=== PATIENT | male | born 1945 | race Caucasian/White ===

== ENCOUNTER 2017-03-07 04:36 | Emergency (ER) | payer OTHER ==
[2017-03-07 04:56] VITALS: BP 157/98; PULSE 80; TEMP 98.5; BMI 34.3
[2017-03-07] MEDS ORDERED: ACETAMINOPHEN 325 MG TABLET (FP) PO ONE (05:15)
[2017-03-07] MEDS ORDERED: OXYCODONE/APAP 5/325MG COMBO TABLET PO ONE (05:15)
[2017-03-07] MEDS ORDERED: IBUPROFEN 400 MG TABLET (FP) PO ONE (05:16)
--- NOTE | 2017-03-07 05:23 | PDOC ---
History of Present Illness - General History Source: Patient Exam Limitations: No Limitations - History of Present Illness Initial Comments: 03/07/17 05:33 Patient is a 71 year old male with a significant past medical history of htn, hld, chronic back pain who presents to the ED with s/p fall today. Patient fell on the street approximately 20 days ago and hit both of his elbows. Patient notes that he fell out of bed today and hit his left elbow and is now experiencing pain and swelling. <Kerrie Diaz - Last Filed: 03/07/17 06:10> <Jame Arreaga - Last Filed: 03/07/17 06:17> - General Chief Complaint: Pain Stated Complaint: LEFT ELBOW PAIN Past History <Kerrie Diaz - Last Filed: 03/07/17 06:10> - Past Medical History HTN: Yes Hypercholesterolemia: Yes Kidney Stones: Yes - Psycho/Social/Smoking Cessation Hx Anxiety: No Suicidal Ideation: No Smoking History: Never smoked Have you smoked in the past 12 months: No Information on smoking cessation initiated: No Hx Alcohol Use: No Drug/Substance Use Hx: No Substance Use Type: None <Jame Arreaga - Last Filed: 03/07/17 06:17> - Past Medical History Allergies/Adverse Reactions: Allergies Allergy/AdvReac Type Severity Reaction Status Date / Time No Known Allergies Allergy Verified 03/07/17 04:51 Home Medications: Ambulatory Orders Tramadol HCl 0 mg PO 03/07/17 Review of Systems - Review of Systems Able to Perform ROS?: Yes Comments:: 03/07/17 05:34 GENERAL/CONSTITUTIONAL: No fever or chills. No weakness. HEAD, EYES, EARS, NOSE AND THROAT: No change in vision. No ear pain or discharge. No sore throat. CARDIOVASCULAR: No chest pain or shortness of breath. RESPIRATORY: No cough, wheezing, or hemoptysis. GASTROINTESTINAL: No nausea, vomiting, diarrhea or constipation. GENITOURINARY: No dysuria, frequency, or change in urination. MUSCULOSKELETAL: +left elbow pain and swelling. No muscle pain. No neck or back pain. SKIN: No rash NEUROLOGIC: No headache, vertigo, loss of consciousness, or change in strength/ sensation. ENDOCRINE: No increased thirst. No abnormal weight change. HEMATOLOGIC/LYMPHATIC: No anemia, easy bleeding, or history of blood clots. ALLERGIC/IMMUNOLOGIC: No hives or skin allergy. <Kerrie Diaz - Last Filed: 03/07/17 06:10> *Physical Exam - Vital Signs Last Vital Signs Temp Pulse Resp BP Pulse Ox 98.5 F 80 20 157/98 98 03/07/17 04:51 03/07/17 04:51 03/07/17 04:51 03/07/17 04:51 03/07/17 04:51 - Physical Exam Comments: 03/07/17 06:10 GENERAL: Awake, alert, and fully oriented, in no acute distress HEAD: No signs of trauma EYES: PERRLA, EOMI, sclera anicteric, conjunctiva clear ENT: Auricles normal inspection, hearing grossly normal, nares patent, oropharynx clear without exudates. Moist mucosa NECK: Normal ROM, supple, no lymphadenopathy, JVD, or masses LUNGS: Breath sounds equal, clear to auscultation bilaterally. No wheezes, and no crackles HEART: Regular rate and rhythm, normal S1 and S2, no murmurs, rubs or gallops ABDOMEN: Soft, nontender, normoactive bowel sounds. No guarding, no rebound. No masses EXTREMITIES: Full ROM, +3 cm diameter hematoma/collection of fluid at the left joint vortex. No erythema, No induration, no joint blot ability. Normal range of motion. No clubbing or cyanosis. No cords or tenderness NEUROLOGICAL: Cranial nerves II through XII grossly intact. Normal speech, normal gait SKIN: Warm, Dry, normal turgor, no rashes or lesions noted. <Kerrie Diaz - Last Filed: 03/07/17 06:10> - Vital Signs Last Vital Signs Temp Pulse Resp BP Pulse Ox 98.5 F 80 20 157/98 98 03/07/17 04:51 03/07/17 04:51 03/07/17 04:51 03/07/17 04:51 03/07/17 04:51 <Jame Arreaga - Last Filed: 03/07/17 06:17> Medical Decision Making - Medical Decision Making 03/07/17 06:15 71yo m with LEFT elbow pain after mechanical fall from bed; this is the second time in the last three weeks he has fallen onto the LEFT elbow; there is no evidence of fracture and there is PE findings suggesting only localized collection of fluid; I have encouraged the patient to ice the area with precaution from thermal injury, active range of motion exercises and compressive wrap to help resolve fluid collection; no indication for needle aspiration; the effusion does not involve the joint given the full range of motion and no pain or limitation with flexion at the elbow; there is no other complaints and no physical exam findings. <Jame Arreaga - Last Filed: 03/07/17 06:17> *DC/Admit/Observation/Transfer - Attestations Scribe Attestion: 03/07/17 05:34 Documentation prepared by MELVIN Herring, acting as biomedical scientist for Jame Arreaga MD. <Kerrie Diaz - Last Filed: 03/07/17 06:10> - Discharge Dispostion Admit: No Decision to Admit order Date/Time: 03/07/17 06:14 - Attestations Physician Attestion: 03/07/17 06:15 I, Dr. Jame Arreaga MD, attest that this document has been prepared under my direction and personally reviewed by me in its entirety. I further attest, that it accurately reflects all work, treatment, procedures and medical decision -making performed by me. <Jame Arreaga - Last Filed: 03/07/17 06:17> Diagnosis at time of Disposition: Elbow pain, left Contusion Qualifiers: Encounter type: initial encounter Contusion area: upper arm Laterality: left Qualified Code(s): S40.022A - Contusion of left upper arm, initial encounter Fall from bed, initial encounter Qualifiers: Encounter type: initial encounter Qualified Code(s): W06.XXXA - Fall from bed, initial encounter - Discharge Dispostion Disposition: HOME Condition at time of disposition: Good - Referrals Referrals: Anay Umana MD [Primary Care Provider] - - Patient Instructions Additional Instructions: Please follow up with your PMD within the next 48 hours; if there is any change otherwise in symptoms, please return immediately to the ED.
[2017-03-07] MEDS ORDERED: ACETAMINOPHEN 325 MG TABLET (FP) ONE (05:31)
[2017-03-07] MEDS ORDERED: OXYCODONE/APAP 5/325MG COMBO TABLET ONE (05:37)
== END 2017-03-07 06:34 | disposition home or self-care (01) ==
LOC: JER 04:36
DX: S50.02XA Contusion of left elbow, initial encounter (principal); W06.XXXA Fall from bed, initial encounter; Y93.89 Activity, other specified; Y92.032 Bedroom in apartment as the place of occurrence of the external cause; I10 Essential (primary) hypertension; E78.00 Pure hypercholesterolemia, unspecified; M54.89 Other dorsalgia; Z87.442 Personal history of urinary calculi
CPT/HCPCS: 73070-TC-LT; 99282-25

== ENCOUNTER 2020-05-30 17:37 | Emergency (ER) | payer OTHER ==
--- NOTE | 2020-05-30 17:46 | PDOC ---
Rapid Medical Evaluation Time Seen by Provider: 05/30/20 17:44 Medical Evaluation: Allergies Allergy/AdvReac Type Severity Reaction Status Date / Time No Known Allergies Allergy Verified 03/11/20 06:25 05/30/20 17:45 CC: lscp worsened with sob since yesterday with pain to neck, no travel, no injury, no recent illness Exam: vss, no reproducible cp, lcta Plan: cardiac w/u Discharge Disposition - Diagnosis Chest pain - Referrals - Patient Instructions - Post Discharge Activity
[2020-05-30 17:52] VITALS: TEMP 97.8; BMI 33.3
[2020-05-30] MEDS ORDERED: ASPIRIN 81 MG CHEWABLE TABLETS ONE (18:25)
[2020-05-30 18:41] LABS: BASO % 0.4 % (0-2.0); EOS % 1.1 % (0-4.5); HEMATOCRIT 41.8 % (35.4-49); HEMOGLOBIN 14.5 GM/dL (11.7-16.9); LYMPH % 32.2 % (8-40); MCH 31.1 pg (25.7-33.7); MCHC 34.5 g/dl (32.0-35.9); MEAN CELL VOLUME 90.1 fl (80-96); MEAN PLT VOLUME 8.2 fl (7.5-11.1); MONO % 9.2 % (3.8-10.2); NEUT % 57.1 % (42.8-82.8); PLATELET COUNT 189 K/MM3 (134-434); RBC 4.64 M/mm3 (4.00-5.60); RDW 13.8 % (11.9-15.9); WHITE BLOOD COUNT 6.8 K/mm3 (4.0-10.0)
[2020-05-30 18:48] LABS: INR 0.99 (0.83-1.09); PROTHROMBIN TIME (PATIENT) 11.7 SEC (9.7-13.0)
--- NOTE | 2020-05-30 19:03 | PDOC ---
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 Patient states he gets severe pain in his chest when he breaths deeply. No radiation to neck or arms. No association with rest, exertion, or position. No leg pain/swelling, hemoptysis or malignancy. No f/c, SOB, n/v, AP, diarrhea. There is constipation. Also complains of neck and shoulder pain for 15 days and states he has been unable to get his diclofenac. PMH/PSH: as in HPI Meds: Clopidogrel Bisulfate [Clopidogrel] 75 mg PO DAILY 03/11/20 Diclofenac Sodium [Voltaren -] 75 mg PO BID 03/11/20 Metoprolol Tartrate 50 mg PO BID 03/11/20 Tamsulosin HCl [Flomax] 0.4 mg PO DAILY 03/11/20 Allergies: none Tob: denies Etoh: denies Rec drugs: denies PCP: [facility] [place] [facility]? ROS GENERAL/CONSTITUTIONAL: No fever or chills. No weakness. HEAD, EYES, EARS, NOSE AND THROAT: No change in vision. No ear pain or discharge. No sore throat. CARDIOVASCULAR: Pleuritic chest pain RESPIRATORY: No cough, wheezing, or hemoptysis. Pleuritic chest pain GASTROINTESTINAL: No nausea, vomiting, diarrhea. + constipation. GENITOURINARY: No dysuria, frequency, or change in urination. MUSCULOSKELETAL: join pain and muscle pain in neck and shoulders SKIN: No rash NEUROLOGIC: No headache, vertigo, loss of consciousness, or change in strength/sensation. ENDOCRINE: No increased thirst. No abnormal weight change HEMATOLOGIC/LYMPHATIC: No anemia, easy bleeding, or history of blood clots. ALLERGIC/IMMUNOLOGIC: No hives or skin allergy. PE GENERAL: Awake, alert, and fully oriented, in no acute distress HEAD: No signs of trauma, normocephalic, atraumatic EYES: PERRLA, EOMI, sclera anicteric, conjunctiva clear ENT: hearing grossly normal, nares patent, oropharynx clear without exudates. Moist mucosa NECK: Normal ROM, supple, no lymphadenopathy, JVD, or masses LUNGS: No distress, speaks full sentences, clear to auscultation bilaterally HEART: Regular rate and rhythm, normal S1 and S2, no murmurs, rubs or gallops, peripheral pulses normal and equal bilaterally. ABDOMEN: Soft, nontender, normoactive bowel sounds. No guarding, no rebound. No masses EXTREMITIES : Normal inspection, Normal range of motion, no edema. No clubbing or cyanosis. Diffusely tender to palpation in neck, shoulders, and arms. No midline tenderness. NEUROLOGICAL: Cranial nerves II through XII grossly intact. Normal speech, no focal sensorimotor deficits. Gait not assessed SKIN: Warm, Dry, normal turgor, no rashes or lesions noted Assessment and Plan 74yo M w/PMH Covid (February), HTN, ?CAD, and lower back msk issues who presents with a CC of left sided pleuritic chest pain x2 days. Story not suspicious for ACS, EKG without ischemic changes, trops neg x1. Covid may have made him hyperoagulable, so will pursue CTA to r/o PE. CXR w/o signs of pneumonia. Labs unremarkable. Neck/shoulder pain likely musculoskeletal - PCP f/u. -EKG: NSR, left axis deviation, no ischemic changes -CXR: no acute process -labs: reassuring -CTA: negative for PE, consistent with resolving COVID pneumonia Pleuritic pain likely secondary to sequellae of COVID pneumonia. Given cards and pulm referral. Patient stable for discharge. Informed of all lab and imaging results. Given follow up instructions and strict return precautions. Patient expressed understanding and agree to plan. 10/09 23:36 05/30/20 23:40 <Ruiz Govea - Last Filed: 05/30/20 23:49> - General Chief Complaint: Shortness of Breath Stated Complaint: SOB Time Seen by Provider: 05/30/20 17:44 Past History <Geni Guadarrama - Last Filed: 05/30/20 22:35> - Medical History Cardiac Disorders: Yes (cad) COPD: No HTN: Yes Hypercholesterolemia: Yes Kidney Stones: Yes - Surgical History Cardiac Surgery: Yes (15 yrs ago - stent placement) - Psycho-Social/Smoking History Smoking History: Never smoked Have you smoked in the past 12 months: No - Substance Abuse Hx (Audit-C & DAST Scrn) How often the patient has a drink containing alcohol: Never Score: In Men: 4 or > Positive; In Women: 3 or > Positive: 0 Screen Result (Pos requires Nsg. Audit-10AR): Negative In the last yr the pt used illegal drug/Rx for NonMed reason: No Score: Yes response is considered Positive: 0 Screen Result (Positive result requires Nsg. DAST-10): Negative <Ruiz Govea - Last Filed: 05/30/20 23:49> - Medical History Allergies/Adverse Reactions: Allergies Allergy/AdvReac Type Severity Reaction Status Date / Time No Known Allergies Allergy Verified 03/11/20 06:25 Home Medications: Ambulatory Orders Clopidogrel Bisulfate [Clopidogrel] 75 mg PO DAILY 03/11/20 Diclofenac Sodium [Voltaren -] 75 mg PO BID 03/11/20 Metoprolol Tartrate 50 mg PO BID 03/11/20 Tamsulosin HCl [Flomax -] 0.4 mg PO DAILY 03/11/20 Docusate Sodium [Colace -] 100 mg PO TID #0 capsule 03/17/20 Gabapentin [Neurontin -] 300 mg PO TID #0 capsule MDD 3 03/17/20 Methocarbamol [Robaxin -] 500 mg PO BID #0 tablet 03/17/20 oxyCODONE HCL [Roxicodone -] 5 mg PO Q6H PRN tablet 03/18/20 *Physical Exam - Vital Signs Last Vital Signs Temp Pulse Resp BP Pulse Ox 97.8 F 53 L 15 121/63 98 05/30/20 17:45 05/30/20 20:12 05/30/20 20:12 05/30/20 20:12 05/30/20 20:12 <Geni Guadarrama - Last Filed: 05/30/20 22:35> - Vital Signs Last Vital Signs Temp Pulse Resp BP Pulse Ox 97.8 F 60 16 141/61 96 05/30/20 17:45 05/30/20 17:45 05/30/20 17:45 05/30/20 17:45 05/30/20 17:45 <Ruiz Govea - Last Filed: 05/30/20 23:49> ED Treatment Course - LABORATORY CBC & Chemistry Diagram: 05/30/20 18:27 05/30/20 18:27 - ADDITIONAL ORDERS Additional order review: Laboratory Results 05/30/20 05/30/20 05/30/20 21:41 21:41 18:27 PT with INR INR PTT (Actin FS) D-Dimer 261 Sodium 136 Potassium 5.1 Chloride 105 Carbon Dioxide 23 Anion Gap 8 BUN 15.7 Creatinine 1.0 Est GFR (CKD-EPI)AfAm 86.76 Est GFR (CKD-EPI)NonAf 74.86 Random Glucose 102 Calcium 9.3 Magnesium 2.3 Total Bilirubin 0.5 AST 34 ALT 42 Alkaline Phosphatase 54 Creatine Kinase 133 Troponin I < 0.02 < 0.02 B-Natriuretic Peptide 51.9 Total Protein 8.2 Albumin 4.1 05/30/20 18:27 PT with INR 11.70 INR 0.99 PTT (Actin FS) 21.0 L D-Dimer Sodium Potassium Chloride Carbon Dioxide Anion Gap BUN Creatinine Est GFR (CKD-EPI)AfAm Est GFR (CKD-EPI)NonAf Random Glucose Calcium Magnesium Total Bilirubin AST ALT Alkaline Phosphatase Creatine Kinase Troponin I B-Natriuretic Peptide Total Protein Albumin 05/30/20 18:27 RBC 4.64 MCV 90.1 MCHC 34.5 RDW 13.8 MPV 8.2 Neutrophils % 57.1 Lymphocytes % 32.2 D Monocytes % 9.2 D Eosinophils % 1.1 D Basophils % 0.4 <Geni Gudaarrama - Last Filed: 05/30/20 22:35> - LABORATORY CBC & Chemistry Diagram: 05/30/20 18:27 05/30/20 18:27 - ADDITIONAL ORDERS Additional order review: Laboratory Results 05/30/20 18:27 PT with INR 11.70 INR 0.99 PTT (Actin FS) 21.0 L 05/30/20 18:27 RBC 4.64 MCV 90.1 MCHC 34.5 RDW 13.8 MPV 8.2 Neutrophils % 57.1 Lymphocytes % 32.2 D Monocytes % 9.2 D Eosinophils % 1.1 D Basophils % 0.4 <Ruiz Govea - Last Filed: 05/30/20 23:49> Discharge - Discharge Information Problems reviewed: Yes - Admission No <Geni Guadarrama - Last Filed: 05/30/20 22:35> - Discharge Information Problems reviewed: Yes <Ruiz Govea - Last Filed: 05/30/20 23:49> - Discharge Information Clinical Impression/Diagnosis: Fibrosis, lung Chest pain Qualifiers: Chest pain type: pleurodynia Qualified Code(s): R07.81 - Pleurodynia Condition: Stable Disposition: HOME - Follow up/Referral Referrals: Gaston Conley MD, MD [Staff Physician] - Nam Vaughn MD [Staff Physician] - - Patient Discharge Instructions Patient Printed Discharge Instructions: DI for Atypical Chest Pain Additional Instructions: Usted fue visto en el servicio de urgencias por dolor pleurtico en el pecho. Hicimos un CTA de kennedy pecho que mostr cambios consistentes con joanna neumona COVID en resolucin. Fue negativo para embolia pulmonar o cualquier proceso subha. Le dimos referencias para tammi a un cardilogo y neumlogo. Regrese al servicio de urgencias si experimenta dolor en el pecho, dificultad para respirar, fiebre o cualquier otro motivo. You were seen in the ED for pleuritic chest pain. We did a CTA of your chest which showed changes consistent with a resolving COVID pneumonia. It was negative for pulmonary embolism or any acute process. We gave you referrals to see a pets and pet supplies salesperson and pipeline maintenance supervisor. Please return to the ED if you experience chest pain, shortness of breath, fever, or any other reason.
[2020-05-30 19:07] LABS: ALBUMIN 4.1 g/dl (3.4-5.0); ALK PHOS 54 U/L (45-117); ANION GAP 8 MMOL/L (8-16); BILIRUBIN,TOTAL 0.5 mg/dL (0.2-1); BLOOD UREA NITROGEN 15.7 mg/dL (7-18); CALCIUM 9.3 mg/dL (8.5-10.1); CHLORIDE 105 mmol/L (98-107); CO2 23 mmol/L (21-32); GLUCOSE,RANDOM 102 mg/dL (74-106); MAGNESIUM 2.3 mg/dL (1.8-2.4); N-TERMINAL BNP 51.9 pg/ml (5-125); POTASSIUM 5.1 mmol/L (3.5-5.1); SGOT/AST 34 U/L (15-37); SGPT/ALT 42 U/L (13-61); SODIUM 136 mmol/L (136-145); TOT PROT 8.2 g/dl (6.4-8.2)
--- NOTE | 2020-05-30 20:08 | PDOC ---
Attending Attestation - Resident Resident Name: Ruiz Govea - ED Attending Attestation I have performed the following: I have examined & evaluated the patient, The case was reviewed & discussed with the resident, I agree w/resident's findings & plan - HPI HPI: 05/30/20 20:08 Pt comes with SOB. He lives alone; suffered COVID in January and he survived. He has been well, but now with residual SOB. 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 Pt has no fevers no chills and no ill contacts. No leg swelling. 05/30/20 21:16 - Physicial Exam PE: 05/30/20 20:13 Normal HEENT obese afebrile no rashes Hear RRR lungs CTA B abd soft NT ND flank no pain with percussion ext:No pitting edema neuro:A+Ox3; moving all extremities. - Medical Decision Making 05/30/20 22:[address] scan and normal cardiac enzymes x 2 05/30/20 22:34 Patient Name: MARCE KURTZ THIS IS A PRELIMINARY REPORT FROM [facility] EXAM: CTA chest with contrast IMAGES:[id number] DATE OF EXAM: 2020-05-30 21:16:47 REASON FOR EXAM: Rule out pulmonary embolism COMPARISON: None Findings: Mild right upper lobe hilar adenopathy and paramediastinal fibrosis causing narrowing of the right upper lobe bronchi and pulmonary arteries. No evidence for pulmonary embolism or aortic dissection. Mild bilateral groundglass opacities and interstitial thickening atelectasis, edema, or less likely infiltrates. Scattered atelectasis and fibrotic changes in the remainder of the lungs. Evidence for prior granulomatous disease. No focal consolidation, pleural effusion, or pneumothorax. Cardiomegaly without significant pericardial effusion. Indeterminate left renal cyst. 05/30/20 22:34 Pt should follow with the biological engineer Heart Score/ECG Review - History History: Slightly suspicious - Electrocardiogram EKG: Normal - Age Age: >/= 65 - Risk Factors Risk Factors Heart Score: Yes Hx Hypertension, Yes Positive family hx of cardiac disease, Yes Hx Obesity Based on the list above the patient has:: >/=3 risk factors or Hx atherosclerotic disease - Troponin Troponin: </= normal limit - Score Heart Score - Total: 4 - ECG Intrepretation Rhythm: Regular Rhythm - Claiborne Claiborne: Normal - P and IN Prominent R with upright T in V1 (true posterior ND): No Delta Wave(s) Present: No WPW: No Discharge - Discharge Information Problems reviewed: Yes Clinical Impression/Diagnosis: Fibrosis, lung Chest pain Qualifiers: Chest pain type: pleurodynia Qualified Code(s): R07.81 - Pleurodynia Condition: Stable Disposition: HOME - Follow up/Referral Referrals: Nam Vaughn MD [Staff Physician] - Gaston Conley MD, MD [Staff Physician] - - Patient Discharge Instructions Patient Printed Discharge Instructions: DI for Atypical Chest Pain Additional Instructions: Usted fue visto en el servicio de urgencias por dolor pleurtico en el pecho. Hicimos un CTA de kennedy pecho que mostr cambios consistentes con joanna neumona COVID en resolucin. Fue negativo para embolia pulmonar o cualquier proceso subha. Le dimos referencias para tammi a un cardilogo y neumlogo. Regrese al servicio de urgencias si experimenta dolor en el pecho, dificultad para respirar, fiebre o cualquier otro motivo. You were seen in the ED for pleuritic chest pain. We did a CTA of your chest which showed changes consistent with a resolving COVID pneumonia. It was negative for pulmonary embolism or any acute process. We gave you referrals to see a bank accountant and biological engineer. Please return to the ED if you experience chest pain, shortness of breath, fever, or any other reason. - Post Discharge Activity
[2020-05-30 20:17] VITALS: BP 121/63; PULSE 53
--- NOTE | 2020-05-31 11:27 | EKG ---
Test Reason : Blood Pressure : / mmHG Vent. Rate : 060 BPM Atrial Rate : 060 BPM P-R Int : 150 ms QRS Dur : 092 ms QT Int : 410 ms P-R-T Axes : 001 -39 057 degrees QTc Int : 410 ms NORMAL SINUS RHYTHM LEFT AXIS DEVIATION ABNORMAL ECG WHEN COMPARED WITH ECG OF 11-MAR-2020 05:39, NO SIGNIFICANT CHANGE WAS FOUND Confirmed by CHARLES NELSON MD ([id number]) on 05/31/2020 11:27:22 AM Referred By: Confirmed By:CHARLES NELSON MD
== END 2020-05-30 23:10 | disposition home or self-care (01) ==
LOC: JER 17:37
DX: R07.81 Pleurodynia (principal); J84.10 Pulmonary fibrosis, unspecified
CPT/HCPCS: 36415; 71045-TC-FY; 71275-TC; 80053; 82550; 83735; 83880; 84484; 85025; 85379; 85610; 85730; 93005; 93010; 99285-25; Q9967

== ENCOUNTER 2020-06-20 12:38 | Observation (INO) | payer OTHER ==
--- NOTE | 2020-06-20 13:07 | PDOC ---
History of Present Illness - General Chief Complaint: Chest Pain Stated Complaint: CHEST PAIN Time Seen by Provider: 06/20/20 13:07 - History of Present Illness Initial Comments: Pt is a 74yo divehi speaking, poor historian, M with PMH HTN, Covid, HLD, DM, CAD who presents with chest pain. Pt states that pain began at 10am when he was walking on the street to roller picker his car. Symptoms have since resolved. Denies any aggravating or relieving factors. CP is non positional, non pleuritic. Pain is on left lateral chest, without radiation, described as sharp, 4/10 in severity. Reports dizziness and nausea, with the feeling of being unable to see, a/w with head movements that has been going on for 1 month. Dizziness is descri bed as feeling like the room is spinning. Denies f/c, SOB, cough, wheezing, abdominal pain. PCP: Yousuf PMH: CAD w/stent (2008), HTN, HLD, DM, memory loss, depression, anxiety, dizziness (2015), sciatica, hx of Covid in February [facility] Home Medication List Medication Instructions Recorded Confirmed Type Clopidogrel Bisulfate [Clopidogrel] 75 mg PO DAILY 03/11/20 03/11/20 History Diclofenac Sodium [Voltaren -] 75 mg PO BID 03/11/20 03/11/20 History Metoprolol Tartrate 50 mg PO BID 03/11/20 03/11/20 History Tamsulosin HCl [Flomax -] 0.4 mg PO DAILY 03/11/20 03/11/20 History Social: denies smoking, drinking, etoh Past History - Medical History Allergies/Adverse Reactions: Allergies Allergy/AdvReac Type Severity Reaction Status Date / Time No Known Allergies Allergy Verified 06/20/20 12:45 Home Medications: Ambulatory Orders Clopidogrel Bisulfate [Clopidogrel] 75 mg PO DAILY 03/11/20 Diclofenac Sodium [Voltaren -] 75 mg PO BID 03/11/20 Metoprolol Tartrate 50 mg PO BID 03/11/20 Tamsulosin HCl [Flomax -] 0.4 mg PO DAILY 03/11/20 Docusate Sodium [Colace -] 100 mg PO TID #0 capsule 03/17/20 Gabapentin [Neurontin -] 300 mg PO TID #0 capsule MDD 3 03/17/20 Methocarbamol [Robaxin -] 500 mg PO BID #0 tablet 03/17/20 oxyCODONE HCL [Roxicodone -] 5 mg PO Q6H PRN tablet 03/18/20 Cardiac Disorders: Yes (cad) COPD: No HTN: Yes Hypercholesterolemia: Yes Kidney Stones: Yes - Surgical History Cardiac Surgery: Yes (15 yrs ago - stent placement) - Psycho-Social/Smoking History Smoking History: Never smoked Have you smoked in the past 12 months: No Information on smoking cessation initiated: No Review of Systems - Review of Systems Able to Perform ROS?: Yes Comments:: CONSTITUTIONAL:denies fever, chills, diaphoresis, generalized weakness, loss of appetite HEENT:denies rhinorrhea, nasal congestion, sore throat, ear pain, eye pain, visual Changes CARDIOVASCULAR:reports chest pain; denies syncope, palpitations, irregular heart rate, lightheadedness, peripheral edema RESPIRATORY:denies cough, shortness of breath, wheezing GASTROINTESTINAL: reports nausea; denies abdominal pain, vomiting, diarrhea, constipation GENITOURINARY:denies dysuria, frequency, hematuria MUSCULOSKELETAL:reports arthalgia (chronic), neck pain (chronic), back pain (chronic) NEUROLOGIC:reports dizziness; denies headache, loss of consciousness, unsteady gait, bladder or bowel incontinence SKIN:denies rash, itching, pallor *Physical Exam - Vital Signs Last Vital Signs Temp Pulse Resp BP Pulse Ox 98.5 F 63 16 113/48 L 97 06/20/20 12:42 06/20/20 12:42 06/20/20 12:42 06/20/20 12:42 06/20/20 12:42 - Physical Exam General: awake, alert, fully oriented, in no acute distress, well developed, well nourished Head: normocephalic, atraumatic Eyes: PERRL, EOMI, anicteric sclera, conjunctiva clear ENT: hearing grossly normal, oropharynx clear without exudates. Moist mucous membranes Neck: supple, normal ROM Lung: equal breath sounds b/l, CTA b/l, no crackles, wheezes; no distress, speaks full sentences Heart: RRR, normal S1, S2, no murmurs, rubs, gallops, no TTP of chest wall Abdomen: soft, non tender, normoactive bowel sounds, no guarding, rebound, masses Extremities: no edema, no erythema or tenderness, DP/PT pulses 2+ and symmetric, no clubbing, cyanosis Neuro: CN2-12 grossly intact, moves all extremities, speaks slowly, uses a walker, sensation intact, no nystagmus Skin: warm, dry, no rashes noted Heart Score/ECG Review - History History: Slightly suspicious - Electrocardiogram EKG: Normal - Age Age: >/= 65 - Risk Factors Risk Factors Heart Score: Yes Hx Hypercholesterolemia, Yes Hx Hypertension, Yes Hx Diabetes, Yes Hx Obesity Based on the list above the patient has:: >/=3 risk factors or Hx atherosclerotic disease - Troponin Troponin: </= normal limit - Score Heart Score - Total: 4 ED Treatment Course - LABORATORY CBC & Chemistry Diagram: 06/20/20 13:05 06/20/20 13:05 - ADDITIONAL ORDERS Additional order review: Laboratory Results 06/20/20 13:02 POC Glucometer 141 06/20/20 13:02 POC Glucometer 141 Medical Decision Making - Medical Decision Making Pt is a 74yo M with PMH who presents with chest pain Vital Signs Period Temp Pulse Resp BP Sys/Venegas Pulse Ox Last 24 Hr 98.5 F 63 16 113/48 97 DDx: ACS, PE, vertigo, TIA Plan: labs, EKG EKG: HR 60bpm, normal sinus rhythm, AZ 148ms, QRS 92ms, QTc 402ms, unchanged from previous HEART score: 4 Labs: no leukocytosis, no anemia, electrolytes WNL, NILA Laboratory Tests 06/20/20 06/20/20 06/20/20 13:02 13:05 13:05 WBC 7.7 RBC 4.42 Hgb 13.9 Hct 39.7 MCV 89.7 MCH 31.4 MCHC 35.0 RDW 13.3 Plt Count 185 MPV 8.0 Absolute Neuts (auto) 5.9 Neutrophils % 76.4 D Lymphocytes % 14.2 D Monocytes % 8.6 Eosinophils % 0.6 Basophils % 0.2 Nucleated RBC % 0 PT with INR 12.40 INR 1.05 PTT (Actin FS) 28.0 Sodium Potassium Chloride Carbon Dioxide Anion Gap BUN Creatinine Est GFR (CKD-EPI)AfAm Est GFR (CKD-EPI)NonAf POC Glucometer 141 Random Glucose Calcium Total Bilirubin AST ALT Alkaline Phosphatase Creatine Kinase Troponin I Total Protein Albumin 08/01/20 13:05 WBC RBC Hgb Hct MCV MCH MCHC RDW Plt Count MPV Absolute Neuts (auto) Neutrophils % Lymphocytes % Monocytes % Eosinophils % Basophils % Nucleated RBC % PT with INR INR PTT (Actin FS) Sodium 138 Potassium 4.9 Chloride 107 Carbon Dioxide 28 Anion Gap 3 L BUN 21.6 H Creatinine 1.5 H Est GFR (CKD-EPI)AfAm 53.14 Est GFR (CKD-EPI)NonAf 45.85 POC Glucometer Random Glucose 128 H Calcium 9.5 Total Bilirubin 0.8 AST 20 ALT 26 Alkaline Phosphatase 56 Creatine Kinase 106 Troponin I < 0.02 Total Protein 7.6 Albumin 3.8 Given cardiac risk factors and age (heart score 4) and NILA, patient to be admitting. Discussed with patient who agreed with plan Disposition Admit to tele obs Discharge - Discharge Information Problems reviewed: Yes Clinical Impression/Diagnosis: NILA (acute kidney injury) Chest pain Qualifiers: Chest pain type: unspecified Qualified Code(s): R07.9 - Chest pain, unspecified Condition: Stable - Admission Yes - Follow up/Referral - Patient Discharge Instructions - Post Discharge Activity
[2020-06-20 14:04] LABS: BASO % 0.2 % (0-2.0); EOS % 0.6 % (0-4.5); HEMATOCRIT 39.7 % (35.4-49); HEMOGLOBIN 13.9 GM/dL (11.7-16.9); LYMPH % 14.2 % (8-40); MCH 31.4 pg (25.7-33.7); MEAN CELL VOLUME 89.7 fl (80-96); MONO % 8.6 % (3.8-10.2); NEUT % 76.4 % (42.8-82.8); PLATELET COUNT 185 K/MM3 (134-434); RBC 4.42 M/mm3 (4.00-5.60); RDW 13.3 % (11.9-15.9); WHITE BLOOD COUNT 7.7 K/mm3 (4.0-10.0)
[2020-06-20 14:10] LABS: INR 1.05 (0.83-1.09); PROTHROMBIN TIME (PATIENT) 12.4 SEC (9.7-13.0)
[2020-06-20] MEDS ORDERED: ASPIRIN 81 MG CHEWABLE TABLETS PO ONE (14:23)
[2020-06-20] MEDS ORDERED: ASPIRIN 81 MG CHEWABLE TABLETS ONE (14:33)
[2020-06-20 14:34] LABS: ALBUMIN 3.8 g/dl (3.4-5.0); ALK PHOS 56 U/L (45-117); ANION GAP 3 MMOL/L (8-16); BLOOD UREA NITROGEN 21.6 mg/dL (7-18); CALCIUM 9.5 mg/dL (8.5-10.1); CHLORIDE 107 mmol/L (98-107); CO2 28 mmol/L (21-32); CREATININE 1.5 mg/dL (0.55-1.3); GLUCOSE,RANDOM 128 mg/dL (74-106); POTASSIUM 4.9 mmol/L (3.5-5.1); SGOT/AST 20 U/L (15-37); SGPT/ALT 26 U/L (13-61); SODIUM 138 mmol/L (136-145); TOT PROT 7.6 g/dl (6.4-8.2)
[2020-06-20 14:38] LABS: BILIRUBIN,TOTAL 0.8 mg/dL (0.2-1)
[2020-06-20] MEDS ORDERED: SODIUM CHLORIDE 1,000 ML IV STA (14:45)
--- NOTE | 2020-06-20 14:47 | PDOC ---
Documentation entered by Nate Garcia SCRIBE, acting as scribe for Kg Calderón MD. Kg Calderón MD: This documentation has been prepared by the Radha goodson Aaron, SCRIBE, under my direction and personally reviewed by me in its entirety. I confirm that the documentation accurately reflects all work, treatment, procedures, and medical decision making performed by me. Attending Attestation - Resident Resident Name: KhanDaisha - ED Attending Attestation I have performed the following: I have examined & evaluated the patient, The case was reviewed & discussed with the resident, I agree w/resident's findings & plan, Exceptions are as noted - HPI HPI: 06/20/20 14:32 The patient is a 74 year old male with a significant PMH of HTN and DM who presents to the emergency department for chest pain. Patient describes the chest pain as a sudden onset of 4.5/10 while walking to his car. Pt also endorses lightheadedness during this episode. Denies SOB. Denies leg swelling. The patient denies SOB, nausea, fever, chills, or headache. Patient denies any other symptoms. Allergies: NKDA PCP: Yes but does not remember name - Physicial Exam PE: 06/20/20 14:47 See resident exam - Medical Decision Making 06/20/20 14:47 74 M with CP and lightheadedness, now resolved. EKG with no acute ischemic changes. - Labs, trop - CXR - Admit tele Discharge - Discharge Information Problems reviewed: Yes Clinical Impression/Diagnosis: NILA (acute kidney injury) Chest pain Qualifiers: Chest pain type: unspecified Qualified Code(s): R07.9 - Chest pain, unspecified Condition: Stable Disposition: HOME - Follow up/Referral - Patient Discharge Instructions - Post Discharge Activity
[2020-06-20] MEDS ORDERED: CEFTRIAXONE 1 GM in DEXTROSE 5%-WATER - 100 ML IVPB ONE (14:59)
[2020-06-20] MEDS ORDERED: AZITHROMYCIN IVPB 500 MG in DEXTROSE 5%-WATER - 250 ML IVPB ONE (14:59)
--- NOTE | 2020-06-20 16:09 | HP ---
CHIEF COMPLAINT: Chest Pain PCP: Dr. To HISTORY OF PRESENT ILLNESS: 74yo Nauruan-speaking M with h/o DM, HTN, HLD, CAD, and chronic lower back pain who originally came in due to atypical L chest pain. 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 Patient reports developing L chest pain without radiation, diaphoresis or SOB. Patient was previously here twice for COVID pneumonitis and chest pain related to his previous COVID hospitalization. Patient reports this pain felt slightly more severe compared to before. He experiences pain with deep breath, but there is no change with position for his pain. In addition he is having slight neck pain, however it does not coincide with his chest pain. Patient states he's been taking his Diclofenac regularly due to his chronic pain as well. He denies any visual disturbances and dizziness. Patient endorses some slight abdominal tenderness as well, however he reports he is due for a bowel movement per his regular schedule. Denies any fever/chills, SOB, diaphoresis, jaw claudication, n/v/d/c, dizziness/lightheadedness, dysuria, polyuria. PAST MEDICAL HISTORY: As above PAST SURGICAL HISTORY: None Social History: Smoking: Quit 15-16 years prior; forgot how much he used to smoke Alcohol: Denies Drugs: Denies Family History: No CVA, no CAD within immediate family members Allergies No Known Allergies Allergy (Verified 06/20/20 12:45) HOME MEDICATIONS: Home Medications Medication Instructions Recorded Clopidogrel Bisulfate [Clopidogrel] 75 mg PO DAILY 03/11/20 Diclofenac Sodium [Voltaren -] 75 mg PO BID 03/11/20 Metoprolol Tartrate 50 mg PO BID 03/11/20 Tamsulosin HCl [Flomax -] 0.4 mg PO DAILY 03/11/20 Docusate Sodium [Colace -] 100 mg PO TID #0 capsule 03/17/20 Gabapentin [Neurontin -] 300 mg PO TID #0 capsule MDD 3 03/17/20 Methocarbamol [Robaxin -] 500 mg PO BID #0 tablet 03/17/20 oxyCODONE HCL [Roxicodone -] 5 mg PO Q6H PRN tablet 03/18/20 REVIEW OF SYSTEMS As per HPI PHYSICAL EXAMINATION Vital Signs - 24 hr 06/20/20 06/20/20 12:42 15:35 Temperature 98.5 F Pulse Rate 63 Respiratory 16 16 Rate Blood Pressure 113/48 L O2 Sat by Pulse 97 Oximetry (%) GENERAL: Awake, alert, and fully oriented, in no acute distress. HEENT: NC/AT, CARRILLO, MMM, EOMi without nystagmus NECK: No C-spine tenderness, no JVD, no masses felt. ROM intact LUNGS: CTA bilaterally. No wheezes, and no crackles. No accessory muscle use. HEART: RRR, normal S1 and S2 without murmur ABDOMEN: Soft, obese, nontender, nondistended, normoactive BS, no guarding or rebound. EXTREMITIES: 2+ pulses, warm, well-perfused. No calf tenderness. No peripheral edema. No CVA tenderness PSYCHIATRIC: Cooperative. Good eye contact. Appropriate mood and affect. SKIN: Warm, dry, no rashes or lesions noted Laboratory Results - last 24 hr 06/20/20 06/20/20 06/20/20 13:02 13:05 13:05 WBC 7.7 RBC 4.42 Hgb 13.9 Hct 39.7 MCV 89.7 MCH 31.4 MCHC 35.0 RDW 13.3 Plt Count 185 MPV 8.0 Absolute Neuts (auto) 5.9 Neutrophils % 76.4 D Lymphocytes % 14.2 D Monocytes % 8.6 Eosinophils % 0.6 Basophils % 0.2 Nucleated RBC % 0 PT with INR 12.40 INR 1.05 PTT (Actin FS) 28.0 Sodium Potassium Chloride Carbon Dioxide Anion Gap BUN Creatinine Est GFR (CKD-EPI)AfAm Est GFR (CKD-EPI)NonAf POC Glucometer 141 Random Glucose Calcium Total Bilirubin AST ALT Alkaline Phosphatase Creatine Kinase Troponin I Total Protein Albumin 06/20/20 13:05 WBC RBC Hgb Hct MCV MCH MCHC RDW Plt Count MPV Absolute Neuts (auto) Neutrophils % Lymphocytes % Monocytes % Eosinophils % Basophils % Nucleated RBC % PT with INR INR PTT (Actin FS) Sodium 138 Potassium 4.9 Chloride 107 Carbon Dioxide 28 Anion Gap 3 L BUN 21.6 H Creatinine 1.5 H Est GFR (CKD-EPI)AfAm 53.14 Est GFR (CKD-EPI)NonAf 45.85 POC Glucometer Random Glucose 128 H Calcium 9.5 Total Bilirubin 0.8 AST 20 ALT 26 Alkaline Phosphatase 56 Creatine Kinase 106 Troponin I < 0.02 Total Protein 7.6 Albumin 3.8 ASSESSMENT/PLAN: Atypical Chest Pain Acute kidney Injury History of HTN History of HLD CAD history Chronic Lower Back Pain --Will place in telemetry observation for atypical chest pain and NILA --Chest pain seems atypical and may be similar to previous COVID pneumonitis and chronic inflammatory sequela --Monitor on telemetry --Trend troponin for r/o evolving ACS --Will defer echocardiogram and further workup as symptoms develop --NILA possibly pre-renal vs. increased NSAID use --Renal U/S to r/o hydronephrosis --Labs ordered for FeNa calculation --Hold all nephrotoxic medications including NSAIDs --Gentle Hydration with IVF Continue home medications with exceptions as above Dispo: Tele Obs Jame Valdez, DO - IM Visit type - Medication Review Med list reviewed for High Risk Meds patients 65 and older: Yes - Emergency Visit Emergency Visit: Yes ED Registration Date: 06/20/20 Care time: The patient presented to the Emergency Department on the above date and was hospitalized for further evaluation of their emergent condition. - New Patient This patient is new to me today: Yes Date on this admission: 06/20/20 - Critical Care Critical Care patient: No
[2020-06-20] MEDS ORDERED: AZITHROMYCIN IVPB 500 MG/250 ML BAG IVPB ONE (16:10)
[2020-06-20] MEDS ORDERED: CEFTRIAXONE 1 GM/50 ML BAG ONE (16:10)
[2020-06-20] MEDS ORDERED: SODIUM CHLORIDE 1,000 ML IV SCH (16:45)
[2020-06-20] MEDS: GABAPENTIN 300 MG CAPSULE PO SCH (23:26)
[2020-06-20] MEDS: METOPROLOL TARTRATE 50 MG TABLET (FP) PO SCH (23:26)
[2020-06-20] MEDS: METHOCARBAMOL 500 MG TABLET PO SCH (23:27)
[2020-06-21 04:18] VITALS: BMI 33.7
[2020-06-21] MEDS: GABAPENTIN 300 MG CAPSULE PO SCH ×3 (05:11→22:25)
[2020-06-21 07:56] LABS: HEMATOCRIT 36.5 % (35.4-49); HEMOGLOBIN 12.7 GM/dL (11.7-16.9); MCH 31.1 pg (25.7-33.7); MCHC 34.6 g/dl (32.0-35.9); MEAN CELL VOLUME 89.9 fl (80-96); MEAN PLT VOLUME 7.8 fl (7.5-11.1); PLATELET COUNT 177 K/MM3 (134-434); RBC 4.06 M/mm3 (4.00-5.60); RDW 13.5 % (11.9-15.9)
[2020-06-21 08:02] LABS: BLOOD UREA NITROGEN 15.6 mg/dL (7-18); CALCIUM 8.6 mg/dL (8.5-10.1); POTASSIUM 4.4 mmol/L (3.5-5.1)
--- NOTE | 2020-06-21 08:33 | PN ---
Progress Note, Physician Chief Complaint: Seen and examined in bed. States no further chest pain present bur pain to neck and upper lumbar area persists. C/o constipation-no BM x 3 days. COVID positive 02/03, negative 03/11 and pending pcr. History of Present Illness: 74yo Romansh-speaking M with h/o DM, HTN, HLD, CAD, and chronic lower back pain who originally came in due to atypical L chest pain. 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 Patient reports developing L chest pain without radiation, diaphoresis or SOB. Patient was previously here twice for COVID pneumonitis and chest pain related to his previous COVID hospitalization. Patient reports this pain felt slightly more severe compared to before. He experiences pain with deep breath, but there is no change with position for his pain. In addition he is having slight neck pain, however it does not coincide with his chest pain. Patient states he's been taking his Diclofenac regularly due to his chronic pain as well. He denies any visual disturbances and dizziness. Patient endorses some slight abdominal tenderness as well, however he reports he is due for a bowel movement per his regular schedule. - Current Medication List Current Medications: Active Medications Clopidogrel Bisulfate (Plavix -) 75 mg PO DAILY [facility] Gabapentin (Neurontin -) 300 mg PO TID [facility] Last Admin: 06/21/20 05:11 Dose: 300 mg Documented by: Methocarbamol (Robaxin -) 500 mg PO BID [facility] Last Admin: 06/20/20 23:27 Dose: 500 mg Documented by: Metoprolol Tartrate (Lopressor -) 50 mg PO BID [facility] Last Admin: 06/20/20 23:26 Dose: 50 mg Documented by: - Objective Vital Signs: Vital Signs Temperature 97.8 F 06/21/20 06:00 Pulse Rate 64 06/21/20 06:00 Respiratory Rate 18 06/21/20 06:00 Blood Pressure 133/76 06/20/20 22:00 O2 Sat by Pulse Oximetry (%) 96 06/21/20 06:00 Constitutional: Yes: Well Nourished, No Distress, Calm Eyes: Yes: WNL, Conjunctiva Clear HENT: Yes: WNL, Atraumatic, Normocephalic Neck: Yes: Supple, Trachea Midline, Tenderness (cervical pain) Cardiovascular: Yes: WNL, Regular Rate and Rhythm Respiratory: Yes: WNL, Regular, CTA Bilaterally Gastrointestinal: Yes: WNL, Normal Bowel Sounds, Soft, Abdomen, Obese ...Rectal Exam: Yes: Deferred Genitourinary: Yes: WNL Breast(s): Yes: WNL Musculoskeletal: Yes: Back Pain Extremities: Yes: WNL Edema: No Peripheral Pulses WNL: Yes Peripheral Pulses: Left Radial: 2+, Right Radial: 2+, Left Doralis Pedis: 2+, Right Dorsalis Pedis: 2+, Left Femoral: 2+, Right Femoral: 2+ Integumentary: Yes: WNL Neurological: Yes: WNL, Alert, Oriented ...Motor Strength: WNL Psychiatric: Yes: WNL Labs: CBC, BMP 06/21/20 06:47 06/21/20 06:47 INR, PTT INR 1.05 (0.83-1.09) 06/20/20 13:05 - ....Imaging Chest X-ray: Report Reviewed, Image Reviewed (bibasilar atelectasis) Ultrasound: Report Reviewed (Renal no hydro) Problem List - Problems (1) Diabetes Assessment/Plan: BGM AC/HS with novolog sliding scale diabetic diet Code(s): E11.9 - TYPE 2 DIABETES MELLITUS WITHOUT COMPLICATIONS (2) HLD (hyperlipidemia) Assessment/Plan: diet controlled on no meds Code(s): E78.5 - HYPERLIPIDEMIA, UNSPECIFIED (3) CAD (coronary artery disease) Assessment/Plan: c/w asa, plavix cardiology consultation pending Code(s): I25.10 - ATHSCL HEART DISEASE OF [place] CORONARY ARTERY W/O ANG PCTRS (4) Suspected COVID-19 virus infection Assessment/Plan: COVID positive 02/03, negative 03/11 and pending pcr. low suspicion of re-infection On RA strict airborne/droplet precautions until resulted Code(s): Z20.828 - CONTACT W AND EXPOSURE TO OTH VIRAL COMMUNICABLE DISEASES (5) Prophylactic measure Assessment/Plan: FEN Fluids: adequate PO intake Electrolytes: monitor & replete as needed Nutrition: diabetic low sodium diet DVT moderate risk sq heparin Dispo Maintain as inpatient full code discharge planning Code(s): Z29.9 - ENCOUNTER FOR PROPHYLACTIC MEASURES, UNSPECIFIED (6) NILA (acute kidney injury) Assessment/Plan: Cr 1.0 down from 1.45 most likely due to dehydration, use of nsaids avoid nephrotoxic agents c/t trend consult renal if does not return to baseline Code(s): N17.9 - ACUTE KIDNEY FAILURE, UNSPECIFIED (7) Chest pain Assessment/Plan: resolved trop negative TTE pending cardiology consultation pending Code(s): R07.9 - CHEST PAIN, UNSPECIFIED Qualifiers: Chest pain type: unspecified Qualified Code(s): R07.9 - Chest pain, unspecified (8) Hypertension Assessment/Plan: normotensive c/w metroprolol Code(s): I10 - ESSENTIAL (PRIMARY) HYPERTENSION (9) Low back pain Assessment/Plan: c/w neurontin lidoderm patch for pain PT Code(s): M54.5 - LOW BACK PAIN (10) Constipation Assessment/Plan: miralax bid dulcolax prn increase PO intake Code(s): K59.00 - CONSTIPATION, UNSPECIFIED Visit type - Emergency Visit Emergency Visit: Yes ED Registration Date: 06/20/20 Care time: The patient presented to the Emergency Department on the above date and was hospitalized for further evaluation of their emergent condition. - New Patient This patient is new to me today: Yes Date on this admission: 06/21/20 - Critical Care Critical Care patient: No - Discharge Referral Referred to [facility] No - Medication Review Med list reviewed for High Risk Meds patients 65 and older: Yes
[2020-06-21] MEDS: TAMSULOSIN HCL 0.4 MG CAP PO SCH (08:45)
[2020-06-21] MEDS ORDERED: BISACODYL 5 MG TABLET.DR (FP) PO ONE (09:15)
--- NOTE | 2020-06-21 09:27 | CON.CARD ---
Consult Consult Specialty:: Cardiology - History of Present Illness History of Present Illness: 74yo Icelandic-speaking M with h/o DM, HTN, HLD, CAD, and chronic lower back pain who originally came in due to atypical L chest pain. 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 Patient reports developing L chest pain without radiation, diaphoresis or SOB. Patient was previously here twice for COVID pneumonitis and chest pain related to his previous COVID hospitalization. Patient reports this pain felt slightly more severe compared to before. He experiences pain with deep breath, but there is no change with position for his pain. In addition he is having slight neck pain, however it does not coincide with his chest pain. Patient states he's been taking his Diclofenac regularly due to his chronic pain as well. He denies any visual disturbances and dizziness. Patient endorses some slight abdominal tenderness as well, however he reports he is due for a bowel movement per his regular schedule. - History Source History Provided By: Patient, Medical Record - Past Medical History Cardio/Vascular: Yes: CAD (stent 15 years ago - does not know details.) - Alcohol/Substance Use Hx Alcohol Use: No - Smoking History Smoking history: Never smoked Have you smoked in the past 12 months: No Home Medications - Allergies Allergies/Adverse Reactions: Allergies Allergy/AdvReac Type Severity Reaction Status Date / Time No Known Allergies Allergy Verified 06/20/20 12:45 - Home Medications Home Medications: Ambulatory Orders Clopidogrel Bisulfate [Clopidogrel] 75 mg PO DAILY 03/11/20 Diclofenac Sodium [Voltaren -] 75 mg PO BID 03/11/20 Metoprolol Tartrate 50 mg PO BID 03/11/20 Tamsulosin HCl [Flomax -] 0.4 mg PO DAILY 03/11/20 Docusate Sodium [Colace -] 100 mg PO TID #0 capsule 03/17/20 Gabapentin [Neurontin -] 300 mg PO TID #0 capsule MDD 3 03/17/20 Methocarbamol [Robaxin -] 500 mg PO BID #0 tablet 03/17/20 oxyCODONE HCL [Roxicodone -] 5 mg PO Q6H PRN tablet 03/18/20 Review of Systems - Review of Systems Constitutional: reports: No Symptoms Eyes: reports: No Symptoms HENT: reports: No Symptoms Neck: reports: No Symptoms Cardiovascular: reports: Chest Pain Gastrointestinal: reports: No Symptoms Genitourinary: reports: No Symptoms Breasts: reports: No Symptoms Reported Musculoskeletal: reports: No Symptoms Integumentary: reports: No Symptoms Neurological: reports: No Symptoms Endocrine: reports: No Symptoms Hematology/Lymphatic: reports: No Symptoms Psychiatric: reports: No Symptoms Vital Signs: Vital Signs Temperature 97.8 F 06/21/20 06:00 Pulse Rate 64 06/21/20 06:00 Respiratory Rate 18 06/21/20 06:00 Blood Pressure 133/76 06/20/20 22:00 O2 Sat by Pulse Oximetry (%) 96 06/21/20 06:00 Constitutional: Yes: Well Nourished, No Distress, Calm Eyes: Yes: WNL, Conjunctiva Clear, EOM Intact HENT: Yes: WNL, Atraumatic, Normocephalic Neck: Yes: WNL, Supple, Trachea Midline Respiratory: Yes: WNL, Regular, CTA Bilaterally Gastrointestinal: Yes: WNL, Normal Bowel Sounds Renal/: Yes: WNL Cardiovascular: Yes: WNL, Regular Rate and Rhythm Musculoskeletal: Yes: WNL Extremities: Yes: WNL Integumentary: Yes: WNL Neurological: Yes: WNL, Alert, Oriented ...Motor Strength: WNL Psychiatric: Yes: WNL, Alert, Oriented - Other Data Labs, Other Data: CBC, BMP 06/21/20 06:47 06/21/20 06:47 INR, PTT INR 1.05 (0.83-1.09) 06/20/20 13:05 Troponin, BNP 06/20/20 06/20/20 13:05 23:19 Troponin I < 0.02 < 0.02 Troponin, BNP 06/20/20 06/20/20 13:05 23:19 Troponin I < 0.02 < 0.02 Imaging - Results Chest X-ray: Image Reviewed (bibasilar atelectasis) EKG: Image Reviewed (sr LDEA no st t wave changes) Problem List - Problems (1) NILA (acute kidney injury) Code(s): N17.9 - ACUTE KIDNEY FAILURE, UNSPECIFIED (2) CAD (coronary artery disease) Code(s): I25.10 - ATHSCL HEART DISEASE OF [place] CORONARY ARTERY W/O ANG PCTRS (3) Chest pain Code(s): R07.9 - CHEST PAIN, UNSPECIFIED Qualifiers: Chest pain type: unspecified Qualified Code(s): R07.9 - Chest pain, unspecified (4) Diabetes Code(s): E11.9 - TYPE 2 DIABETES MELLITUS WITHOUT COMPLICATIONS (5) HLD (hyperlipidemia) Code(s): E78.5 - HYPERLIPIDEMIA, UNSPECIFIED (6) Prophylactic measure Code(s): Z29.9 - ENCOUNTER FOR PROPHYLACTIC MEASURES, UNSPECIFIED (7) Suspected COVID-19 virus infection Code(s): Z20.828 - CONTACT W AND EXPOSURE TO [facility] VIRAL COMMUNICABLE DISEASES (8) 2019 novel coronavirus detected Code(s): U07.1 - COVID POSITIVE (9) BPH (benign prostatic hyperplasia) Code(s): N40.0 - BENIGN PROSTATIC HYPERPLASIA WITHOUT LOWER URINRY TRACT SYMP (10) Bitten by mouse Code(s): W53.01XA - BITTEN BY MOUSE, INITIAL ENCOUNTER (11) Cannot walk Code(s): R26.2 - DIFFICULTY IN WALKING, NOT ELSEWHERE CLASSIFIED (12) Contusion Code(s): T14.8 - OTHER INJURY OF UNSPECIFIED BODY REGION * DO NOT USE * Qualifiers: Encounter type: initial encounter Contusion area: upper arm Laterality: left Qualified Code(s): S40.022A - Contusion of left upper arm, initial encounter (13) Elbow pain, left Code(s): M25.522 - PAIN IN LEFT ELBOW (14) Fall from bed, initial encounter Code(s): W06.XXXA - FALL FROM BED, INITIAL ENCOUNTER Qualifiers: Encounter type: initial encounter Qualified Code(s): W06.XXXA - Fall from bed, initial encounter (15) Fibrosis, lung Code(s): J84.10 - PULMONARY FIBROSIS, UNSPECIFIED (16) Herniation of lumbar intervertebral disc with radiculopathy Code(s): M51.16 - INTERVERTEBRAL DISC DISORDERS W RADICULOPATHY, LUMBAR REGION (17) Hip pain Code(s): M25.559 - PAIN IN UNSPECIFIED HIP Qualifiers: Laterality: right Qualified Code(s): M25.551 - Pain in right hip (18) Hypertension Code(s): I10 - ESSENTIAL (PRIMARY) HYPERTENSION (19) Low back pain Code(s): M54.5 - LOW BACK PAIN (20) Myelopathy Code(s): G95.9 - DISEASE OF SPINAL CORD, UNSPECIFIED (21) Right leg pain Code(s): M79.604 - PAIN IN RIGHT LEG Assessment/Plan Atypical Chest Pain Remote h/o PCI stent 15 years ago on Plavix but bnot on ASA Acute kidney Injury History of HTN History of HLD CAD history Chronic Lower Back Pain Plan; elemetry serial EKG CE ECHO MIBI stress test Obtain details of prior w/u
[2020-06-21] MEDS ORDERED: PT OWN MED DRAWER 7, Y5N ONE ×2 (10:08→22:02)
[2020-06-21] MEDS: METOPROLOL TARTRATE 50 MG TABLET (FP) PO SCH ×2 (10:14→22:25)
[2020-06-21] MEDS: POLYETHYLENE GLYCOL 3350 119 GM BTL PO SCH ×2 (10:15→22:25)
[2020-06-21] MEDS: CLOPIDOGREL BISULFATE 75 MG TABLET (FP) PO SCH (10:15)
[2020-06-21] MEDS: METHOCARBAMOL 500 MG TABLET PO SCH ×2 (10:16→22:26)
[2020-06-21] MEDS: DOCUSATE SODIUM 100 MG CAPSULE (FP) PO SCH ×2 (13:52→22:25)
[2020-06-21] MEDS ORDERED: INSULIN SLIDING SCALE (NOVOLOG) 1 VIAL SQ SCH (16:30)
[2020-06-21] MEDS: LIDOCAINE 5% TOPICAL PATCH TP SCH (16:30)
[2020-06-21] MEDS ORDERED: LIDOCAINE PATCH REMOVAL MC SCH ×2 (22:00)
[2020-06-22 06:41] LABS: BASO % 0.2 % (0-2.0); EOS % 1.7 % (0-4.5); HEMATOCRIT 37.9 % (35.4-49); LYMPH % 44.1 % (8-40); MCH 30.8 pg (25.7-33.7); MCHC 34.2 g/dl (32.0-35.9); MEAN CELL VOLUME 89.9 fl (80-96); MEAN PLT VOLUME 7.7 fl (7.5-11.1); MONO % 12.3 % (3.8-10.2); NEUT % 41.7 % (42.8-82.8); PLATELET COUNT 180 K/MM3 (134-434); RBC 4.22 M/mm3 (4.00-5.60); RDW 13.1 % (11.9-15.9); WHITE BLOOD COUNT 5.6 K/mm3 (4.0-10.0)
[2020-06-22] MEDS: DOCUSATE SODIUM 100 MG CAPSULE (FP) PO SCH ×2 (06:45→13:00)
[2020-06-22] MEDS: GABAPENTIN 300 MG CAPSULE PO SCH ×2 (06:45→13:00)
[2020-06-22 07:06] LABS: ALBUMIN 3.3 g/dl (3.4-5.0); BILIRUBIN,TOTAL 0.4 mg/dL (0.2-1); BLOOD UREA NITROGEN 15.7 mg/dL (7-18); MAGNESIUM 2.3 mg/dL (1.8-2.4); N-TERMINAL BNP 64.2 pg/ml (5-125); POTASSIUM 4.2 mmol/L (3.5-5.1); TOT PROT 6.9 g/dl (6.4-8.2)
--- NOTE | 2020-06-22 07:58 | PN ---
Progress Note, Physician History of Present Illness: 74yo Romansh-speaking M with h/o DM, HTN, HLD, CAD, and chronic lower back pain who originally came in due to atypical L chest pain. 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 Patient reports developing L chest pain without radiation, diaphoresis or SOB. Patient was previously here twice for COVID pneumonitis and chest pain related to his previous COVID hospitalization. Patient reports this pain felt slightly more severe compared to before. He experiences pain with deep breath, but there is no change with position for his pain. In addition he is having slight neck pain, however it does not coincide with his chest pain. Patient states he's been taking his Diclofenac regularly due to his chronic pain as well. He denies any visual disturbances and dizziness. Patient endorses some slight abdominal tenderness as well, however he reports he is due for a bowel movement per his regular schedule. - Current Medication List Current Medications: Active Medications Clopidogrel Bisulfate (Plavix -) 75 mg PO DAILY [facility] Last Admin: 06/21/20 10:15 Dose: 75 mg Documented by: Docusate Sodium (Colace -) 100 mg PO TID [facility] Last Admin: 06/22/20 06:45 Dose: Not Given Documented by: Gabapentin (Neurontin -) 300 mg PO TID [facility] Last Admin: 06/22/20 06:45 Dose: Not Given Documented by: Lidocaine (Lidoderm Patch -) 1 patch TP DAILY [facility] Last Admin: 06/21/20 16:30 Dose: 1 patch Documented by: Methocarbamol (Robaxin -) 500 mg PO BID [facility] Last Admin: 06/21/20 22:26 Dose: 500 mg Documented by: Metoprolol Tartrate (Lopressor -) 50 mg PO BID [facility] Last Admin: 06/21/20 22:25 Dose: 50 mg Documented by: Miscellaneous (Lidoderm Patch Removal) 1 each MC DAILY@2200 [facility] Last Admin: 06/21/20 22:40 Dose: 1 each Documented by: Polyethylene Glycol (Miralax (For Daily Use) -) 17 gm PO BID [facility] Last Admin: 06/21/20 22:25 Dose: 17 gm Documented by: Tamsulosin HCl (Flomax -) 0.4 mg PO 0830 [facility] Last Admin: 06/21/20 08:45 Dose: 0.4 mg Documented by: - Objective Vital Signs: Vital Signs Temperature 97.8 F 06/22/20 06:00 Pulse Rate 56 L 06/22/20 06:00 Respiratory Rate 18 06/22/20 06:00 Blood Pressure 108/57 L 06/22/20 06:00 O2 Sat by Pulse Oximetry (%) 93 L 06/22/20 06:00 Eyes: Yes: WNL, Conjunctiva Clear, EOM Intact HENT: Yes: WNL, Atraumatic, Normocephalic Neck: Yes: WNL, Supple, Trachea Midline Cardiovascular: Yes: WNL, Regular Rate and Rhythm Respiratory: Yes: WNL, Regular, CTA Bilaterally Gastrointestinal: Yes: WNL, Normal Bowel Sounds Genitourinary: Yes: WNL Musculoskeletal: Yes: WNL Extremities: Yes: WNL Edema: No Integumentary: Yes: WNL Neurological: Yes: WNL, Alert, Oriented ...Motor Strength: WNL Psychiatric: Yes: WNL Labs: CBC, BMP 06/22/20 06:00 06/22/20 06:00 INR, PTT INR 1.05 (0.83-1.09) 06/20/20 13:05 Problem List - Problems (1) NILA (acute kidney injury) Code(s): N17.9 - ACUTE KIDNEY FAILURE, UNSPECIFIED (2) CAD (coronary artery disease) Code(s): I25.10 - ATHSCL HEART DISEASE OF [place] CORONARY ARTERY W/O ANG PCTRS (3) Chest pain Code(s): R07.9 - CHEST PAIN, UNSPECIFIED Qualifiers: Chest pain type: unspecified Qualified Code(s): R07.9 - Chest pain, unspecified (4) Diabetes Code(s): E11.9 - TYPE 2 DIABETES MELLITUS WITHOUT COMPLICATIONS (5) HLD (hyperlipidemia) Code(s): E78.5 - HYPERLIPIDEMIA, UNSPECIFIED (6) Prophylactic measure Code(s): Z29.9 - ENCOUNTER FOR PROPHYLACTIC MEASURES, UNSPECIFIED (7) Suspected COVID-19 virus infection Code(s): Z20.828 - CONTACT W AND EXPOSURE TO [place]TH VIRAL COMMUNICABLE DISEASES (8) 2019 novel coronavirus detected Code(s): U07.1 - COVID POSITIVE (9) BPH (benign prostatic hyperplasia) Code(s): N40.0 - BENIGN PROSTATIC HYPERPLASIA WITHOUT LOWER URINRY TRACT SYMP (10) Bitten by mouse Code(s): W53.01XA - BITTEN BY MOUSE, INITIAL ENCOUNTER (11) Cannot walk Code(s): R26.2 - DIFFICULTY IN WALKING, NOT ELSEWHERE CLASSIFIED (12) Contusion Code(s): T14.8 - OTHER INJURY OF UNSPECIFIED BODY REGION * DO NOT USE * Qualifiers: Encounter type: initial encounter Contusion area: upper arm Laterality: left Qualified Code(s): S40.022A - Contusion of left upper arm, initial encounter (13) Elbow pain, left Code(s): M25.522 - PAIN IN LEFT ELBOW (14) Fall from bed, initial encounter Code(s): W06.XXXA - FALL FROM BED, INITIAL ENCOUNTER Qualifiers: Encounter type: initial encounter Qualified Code(s): W06.XXXA - Fall from bed, initial encounter (15) Fibrosis, lung Code(s): J84.10 - PULMONARY FIBROSIS, UNSPECIFIED (16) Herniation of lumbar intervertebral disc with radiculopathy Code(s): M51.16 - INTERVERTEBRAL DISC DISORDERS W RADICULOPATHY, LUMBAR REGION (17) Hip pain Code(s): M25.559 - PAIN IN UNSPECIFIED HIP Qualifiers: Laterality: right Qualified Code(s): M25.551 - Pain in right hip (18) Hypertension Code(s): I10 - ESSENTIAL (PRIMARY) HYPERTENSION (19) Low back pain Code(s): M54.5 - LOW BACK PAIN (20) Myelopathy Code(s): G95.9 - DISEASE OF SPINAL CORD, UNSPECIFIED (21) Right leg pain Code(s): M79.604 - PAIN IN RIGHT LEG Assessment/Plan Atypical Chest Pain Remote h/o PCI stent 15 years ago on Plavix but not on ASA Acute kidney Injury History of HTN History of HLD CAD history Chronic Lower Back Pain Plan; telemetry serial EKG CE ECHO negative MIBI stress test d/c Plavix cont ASA 81 QD will f/u as the outpatient
--- NOTE | 2020-06-22 08:00 | PN ---
Progress Note, Physician Chief Complaint: left-sided chest pain History of Present Illness: 74-year-old female history of type 2 diabetes mellitus hypertension hypercholesterolemia CAD status post PCI more than 15 years ago, chronic back pain also history of COVID pneumonitis never hospitalized and diagnosed on February 04, 2020, presented with left-sided chest pain without any radiation diaphoresis or shortness of breath, on hospitalization mild NILA [creatinine 1.5 baseline creatinine 1.0] resolved evaluated by cardiology serial cardiac enzymes x2 are negative no acute ST-T changes on EKG, patient is scheduled for MIBI stress test. - Current Medication List Current Medications: Active Medications Clopidogrel Bisulfate (Plavix -) 75 mg PO DAILY [facility] Last Admin: 06/21/20 10:15 Dose: 75 mg Documented by: Docusate Sodium (Colace -) 100 mg PO TID [facility] Last Admin: 06/22/20 06:45 Dose: Not Given Documented by: Gabapentin (Neurontin -) 300 mg PO TID [facility] Last Admin: 06/22/20 06:45 Dose: Not Given Documented by: Lidocaine (Lidoderm Patch -) 1 patch TP DAILY [facility] Last Admin: 06/21/20 16:30 Dose: 1 patch Documented by: Methocarbamol (Robaxin -) 500 mg PO BID [facility] Last Admin: 06/21/20 22:26 Dose: 500 mg Documented by: Metoprolol Tartrate (Lopressor -) 50 mg PO BID [facility] Last Admin: 06/21/20 22:25 Dose: 50 mg Documented by: Miscellaneous (Lidoderm Patch Removal) 1 each MC DAILY@2200 [facility] Last Admin: 06/21/20 22:40 Dose: 1 each Documented by: Polyethylene Glycol (Miralax (For Daily Use) -) 17 gm PO BID [facility] Last Admin: 06/21/20 22:25 Dose: 17 gm Documented by: Tamsulosin HCl (Flomax -) 0.4 mg PO 0830 [facility] Last Admin: 06/21/20 08:45 Dose: 0.4 mg Documented by: - Objective Vital Signs: Vital Signs Temperature 97.8 F 06/22/20 06:00 Pulse Rate 56 L 06/22/20 06:00 Respiratory Rate 18 06/22/20 06:00 Blood Pressure 108/57 L 06/22/20 06:00 O2 Sat by Pulse Oximetry (%) 93 L 06/22/20 06:00 General: Elderly man, comfortable, not in distress HEENT mucous membranes moist, no anemia, no jaundice, PERRLA, no nystagmus Neck: No JVD, supple, no bruit, thyroid palpably normal, normal carotid pulsations. Chest: Nontender, clear to auscultation bilaterally CVS: S1-S2 regularno murmur/gallop/rub Abdomen: Nondistended, soft, bowel sounds present. 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 , no gross motor sensory deficit Labs: CBC, BMP 06/22/20 06:00 06/22/20 06:00 INR, PTT INR 1.05 (0.83-1.09) 06/20/20 13:05 Troponin, BNP 06/22/20 06:00 B-Natriuretic Peptide 64.2 - ....Imaging EKG: Report Reviewed (No acute ST-T change) Problem List - Problems (1) Chest pain Assessment/Plan: History of CAD presented with atypical chest pain, normal serial cardiac enzymes and EKGs, evaluated by cardiology patient is scheduled for nuclear stress test, continue home medications., As per patient he had a coronary stent at [facility] 15 years ago currently not following with any straight cutter at home he is taking aspirin Plavix and beta-blockers will continue same, underwent nuclear stress test this is no reversible ischemia ejection fraction 59% Problems reviewed: Yes Code(s): R07.9 - CHEST PAIN, UNSPECIFIED Qualifiers: Chest pain type: unspecified Qualified Code(s): R07.9 - Chest pain, unspecified (2) Hypertension Assessment/Plan: Blood pressure is well controlled, Problems reviewed: Yes Code(s): I10 - ESSENTIAL (PRIMARY) HYPERTENSION (3) HLD (hyperlipidemia) Assessment/Plan: Continue statin Problems reviewed: Yes Code(s): E78.5 - HYPERLIPIDEMIA, UNSPECIFIED (4) CAD (coronary artery disease) Assessment/Plan: Remote history of CAD status post PCI patient is on Plavix and a statin not documentation available, presented with atypical chest pain will follow-up cardiology recommendations. Problems reviewed: Yes Code(s): I25.10 - ATHSCL HEART DISEASE OF [place] CORONARY ARTERY W/O ANG PCTRS (5) NILA (acute kidney injury) Assessment/Plan: Most likely due to dehydration resolved Problems reviewed: Yes Code(s): N17.9 - ACUTE KIDNEY FAILURE, UNSPECIFIED (6) Low back pain Assessment/Plan: Continue muscle relaxant and gabapentin, Percocet advised to visit PMD for pain management referral. Problems reviewed: Yes Code(s): M54.5 - LOW BACK PAIN (7) BPH (benign prostatic hyperplasia) Assessment/Plan: Continue Flomax Problems reviewed: Yes Code(s): N40.0 - BENIGN PROSTATIC HYPERPLASIA WITHOUT LOWER URINRY TRACT SYMP (8) Obesity (BMI 30-39.9) Assessment/Plan: Advised weight management referral as an outpatient. Problems reviewed: Yes Code(s): E66.9 - OBESITY, UNSPECIFIED
[2020-06-22] MEDS ORDERED: PT OWN MED DRAWER 7, Y5N ONE (09:36)
[2020-06-22] MEDS ORDERED: REGADENOSON 0.4 MG/5 ML PRE-FILLED SYRINGE IVPUSH ONE ×2 (10:06→10:15)
--- NOTE | 2020-06-22 10:09 | EKG ---
Test Reason : Blood Pressure : / mmHG Vent. Rate : 060 BPM Atrial Rate : 060 BPM P-R Int : 148 ms QRS Dur : 092 ms QT Int : 402 ms P-R-T Axes : -04 -35 051 degrees QTc Int : 402 ms NORMAL SINUS RHYTHM LEFT AXIS DEVIATION ABNORMAL ECG WHEN COMPARED WITH ECG OF 30-MAY-2020 18:58, NO SIGNIFICANT CHANGE WAS FOUND Confirmed by Rangel Doyle ([id number]) on 06/22/2020 10:09:16 AM Referred By: Confirmed By:Rangel Doyle
[2020-06-22] MEDS ORDERED: oxyCODONE HCL 5 MG TABLET PO PRN (11:48)
[2020-06-22] MEDS: POLYETHYLENE GLYCOL 3350 119 GM BTL PO SCH (12:43)
[2020-06-22] MEDS: LIDOCAINE 5% TOPICAL PATCH TP SCH (12:44)
[2020-06-22] MEDS: CLOPIDOGREL BISULFATE 75 MG TABLET (FP) PO SCH (12:44)
[2020-06-22] MEDS: METHOCARBAMOL 500 MG TABLET PO SCH (12:44)
[2020-06-22] MEDS: METOPROLOL TARTRATE 50 MG TABLET (FP) PO SCH (12:44)
[2020-06-22] MEDS: TAMSULOSIN HCL 0.4 MG CAP PO SCH (12:44)
--- NOTE | 2020-06-22 13:57 | DS ---
Physical Examination Vital Signs: Vital Signs Temperature 97.6 F 06/22/20 10:00 Pulse Rate 63 06/22/20 10:00 Respiratory Rate 18 06/22/20 10:00 Blood Pressure 140/73 06/22/20 10:00 O2 Sat by Pulse Oximetry (%) 96 06/22/20 10:00 General: Elderly man, comfortable, not in distress HEENT mucous membranes moist, no anemia, no jaundice, PERRLA, no nystagmus Neck: No JVD, supple, no bruit, thyroid palpably normal, normal carotid pulsations. Chest: Nontender, clear to auscultation bilaterally CVS: S1-S2 regular no murmur/gallop/rub Abdomen: Nondistended, soft, bowel sounds present. 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9) (Acute) Prophylactic measure (Acute) Suspected COVID-19 virus infection (Acute) Hospital Course: 74-year-old female history of type 2 diabetes mellitus hypertension hypercholesterolemia CAD status post PCI more than 15 years ago, chronic back pain also history of COVID pneumonitis never hospitalized and diagnosed on February 04, 2020, presented with left-sided chest pain without any radiation diaphoresis or shortness of breath, on hospitalization mild NILA [creatinine 1.5 baseline creatinine 1.0] resolved evaluated by cardiology serial cardiac enzymes x2 are negative no acute ST-T changes on EKG, patient patient underwent nuclear stress test that is reported normal. Condition: Stable - Instructions Diet, Activity, Other Instructions: Low-salt low-cholesterol low-calorie diet He was admitted with chest underwent work-up for coronary artery disease etiology EKG was normal, normal serial cardiac enzyme was normal, you underwent a nuclear stress test that shows no ischemia normal ejection fraction of 59%, you resume your home medication and follow-up with your primary care provider in 2 days NILA: On admission with creatinine level was high due to use of pain medication diclofenac sodium you are advised to stop diclofenac sodium and avoid NSAIDs like Motrin naproxen. Referrals: Jacqueline To MD [Primary Care Provider] - 2 Weeks Domingo Keane MD [Staff Physician] - 1 Month Disposition: HOME - Home Medications Comprehensive Discharge Medication List: Ambulatory Orders Clopidogrel Bisulfate [Clopidogrel] 75 mg PO DAILY 03/11/20 Metoprolol Tartrate 50 mg PO BID 03/11/20 Tamsulosin HCl [Flomax -] 0.4 mg PO DAILY 03/11/20 Docusate Sodium [Colace -] 100 mg PO TID #0 capsule 03/17/20 Gabapentin [Neurontin -] 300 mg PO TID #0 capsule MDD 3 03/17/20 Methocarbamol [Robaxin -] 500 mg PO BID #0 tablet 03/17/20 oxyCODONE HCL [Roxicodone -] 5 mg PO Q6H PRN tablet 03/18/20 Atorvastatin Ca [Lipitor] 20 mg NR HS #30 tablet 06/22/20 ASA 81 milligrams daily Prescription Drug Monitoring Program (I-STOP) results: I-STOP reviewed and no issues identified
[2020-06-22 14:16] VITALS: BP 133/67; PULSE 64; TEMP 97.8
== END 2020-06-22 18:14 | disposition home or self-care (01) ==
LOC: JER 12:38 → JERBED 14:57 → J4S 21:37
PROVIDERS: ADMIT Internal Medicine; ATTEND Internal Medicine
PROC: 3E0337Z Introduction of Electrolytic and Water Balance Substance into Peripheral Vein, Percutaneous Approach (ICD-10-PCS; principal; 2020-06-20)
PROC: 3E03329 Introduction of Other Anti-infective into Peripheral Vein, Percutaneous Approach (ICD-10-PCS; 2020-06-20)
PROC: 3E033GC Introduction of Other Therapeutic Substance into Peripheral Vein, Percutaneous Approach (ICD-10-PCS; 2020-06-20)
DX: R07.9 Chest pain, unspecified (principal); R07.89 Other chest pain; G89.29 Other chronic pain; M54.5 Low back pain; E78.5 Hyperlipidemia, unspecified; I25.10 Atherosclerotic heart disease of native coronary artery without angina pectoris; I10 Essential (primary) hypertension; E11.9 Type 2 diabetes mellitus without complications; E66.9 Obesity, unspecified; Z68.33 Body mass index [BMI] 33.0-33.9, adult; R10.9 Unspecified abdominal pain; N17.9 Acute kidney failure, unspecified; Z29.9 Encounter for prophylactic measures, unspecified; Z20.828 Contact with and (suspected) exposure to other viral communicable diseases; U07.1 COVID-19; N40.0 Benign prostatic hyperplasia without lower urinary tract symptoms; R26.2 Difficulty in walking, not elsewhere classified; M25.522 Pain in left elbow; M25.551 Pain in right hip; M79.604 Pain in right leg; G95.9 Disease of spinal cord, unspecified; Z95.5 Presence of coronary angioplasty implant and graft
CPT/HCPCS: 36415; 71045-TC-FY; 76775-TC; 78452-TC; 80048; 80053; 80061; 82550; 82565; 82962; 83721; 83735; 83880; 84300; 84484; 85025; 85027; 85610; 85730; 93005; 93010; 93017; 96361; 96365; 96368; 96375; 99285-25; A9502; G0378; J2785; U0003

== ENCOUNTER 2021-02-14 23:56 | Emergency (ER) | payer OTHER ==
[2021-02-15 00:26] VITALS: TEMP 97.2; BMI 39.0
[2021-02-15 02:51] VITALS: BP 118/59; PULSE 58
== END 2021-02-15 03:16 | disposition home or self-care (01) ==
LOC: JER 23:56
DX: M79.10 Myalgia, unspecified site (principal)
CPT/HCPCS: 99284-25; C9803; U0003

== ENCOUNTER 2021-03-18 12:27 | Emergency (ER) | payer OTHER ==
[2021-03-18 12:40] VITALS: BMI 34.3
[2021-03-18 13:46] LABS: BASO % 0.2 % (0-2.0); EOS % 1.3 % (0-4.5); HEMATOCRIT 41.6 % (35.4-49); HEMOGLOBIN 14.4 GM/dL (11.7-16.9); LYMPH % 39.1 % (8-40); MCH 30.5 pg (25.7-33.7); MCHC 34.5 g/dl (32.0-35.9); MEAN CELL VOLUME 88.3 fl (80-96); MEAN PLT VOLUME 8.2 fl (7.5-11.1); MONO % 11.2 % (3.8-10.2); NEUT % 48.2 % (42.8-82.8); PLATELET COUNT 201 K/MM3 (134-434); RBC 4.71 M/mm3 (4.00-5.60); RDW 13.5 % (11.9-15.9); WHITE BLOOD COUNT 5.7 K/mm3 (4.0-10.0)
[2021-03-18 14:02] LABS: INR 0.98 (0.83-1.09); PROTHROMBIN TIME (PATIENT) 11.9 SEC (9.7-13.0)
[2021-03-18 14:04] LABS: ACTIVATED PTT 28.8 SECONDS (25.2-36.5)
[2021-03-18 14:06] LABS: CHLORIDE 108 mmol/L (98-107); SODIUM 138 mmol/L (136-145)
[2021-03-18 14:07] LABS: ALBUMIN 3.9 g/dl (3.4-5.0); ANION GAP 8 MMOL/L (8-16); BLOOD UREA NITROGEN 22.3 mg/dL (7-18); CALCIUM 9.3 mg/dL (8.5-10.1); CO2 23 mmol/L (21-32); GLUCOSE,RANDOM 125 mg/dL (74-106); MAGNESIUM 2.2 mg/dL (1.8-2.4)
[2021-03-18 14:11] LABS: CREATININE 1.1 mg/dL (0.55-1.3); SGOT/AST 22 U/L (15-37)
[2021-03-18 14:12] LABS: ALK PHOS 67 U/L (45-117); BILIRUBIN,TOTAL 0.8 mg/dL (0.2-1); TOT PROT 7.6 g/dl (6.4-8.2)
[2021-03-18 14:17] LABS: SGPT/ALT 23 U/L (13-61)
[2021-03-18] MEDS ORDERED: SODIUM CHLORIDE 0.9% 500 ML INFUS.BAG IV ONE (16:03)
[2021-03-18 21:07] VITALS: BP 110/68; PULSE 58; TEMP 98.5
== END 2021-03-18 19:54 | disposition short-term general hospital (02) ==
LOC: JER 12:27
DX: I20.8 Other forms of angina pectoris (principal)
CPT/HCPCS: 36415; 71045-TC-FY; 80053; 82550; 83735; 84484; 85025; 85610; 85730; 93005; 93010; 99285-25; C9803; U0003; U0005

== ENCOUNTER 2021-05-03 01:35 | Emergency (ER) | payer OTHER ==
[2021-05-03 02:05] VITALS: BP 132/90; PULSE 84; TEMP 98.9; BMI 35.2
[2021-05-03] MEDS ORDERED: ACETAMINOPHEN 325 MG TABLET (FP) PO ONE (02:37)
[2021-05-03] MEDS ORDERED: ACETAMINOPHEN 325 MG TABLET (FP) ONE (02:55)
[2021-05-03 03:06] LABS: BASO % 0.3 % (0-2.0); EOS % 0.5 % (0-4.5); HEMATOCRIT 40.5 % (35.4-49); HEMOGLOBIN 14.1 GM/dL (11.7-16.9); LYMPH % 16.5 % (8-40); MCH 30.6 pg (25.7-33.7); MCHC 34.9 g/dl (32.0-35.9); MEAN CELL VOLUME 87.8 fl (80-96); MEAN PLT VOLUME 7.5 fl (7.5-11.1); MONO % 12.4 % (3.8-10.2); NEUT % 70.3 % (42.8-82.8); PLATELET COUNT 177 K/MM3 (134-434); RBC 4.61 M/mm3 (4.00-5.60); RDW 13.3 % (11.9-15.9)
[2021-05-03 03:26] LABS: CALCIUM 9.3 mg/dL (8.5-10.1)
[2021-05-03 03:27] LABS: BLOOD UREA NITROGEN 10.4 mg/dL (7-18)
[2021-05-03] MEDS ORDERED: LIDOCAINE 5% TOPICAL PATCH TP ONE (03:28)
[2021-05-03] MEDS ORDERED: IBUPROFEN 600 MG TABLET (FP) PO ONE ×2 (03:28→04:12)
[2021-05-03 03:30] LABS: CREATININE 0.9 mg/dL (0.55-1.3)
[2021-05-03 04:01] LABS: PH,URINE 7.5 (5.0-8.0); URINE APPEARANCE CLEAR; URINE BILIRUBIN NEGATIVE (NEGATIVE); URINE COLOR YELLOW; URINE GLUCOSE (UA) NEGATIVE (NEGATIVE); URINE KETONE NEGATIVE (NEGATIVE); URINE LEUK ESTERASE NEGATIVE (NEGATIVE); URINE NITRITE NEGATIVE (NEGATIVE); URINE PROTEIN NEGATIVE (NEGATIVE)
[2021-05-03] MEDS ORDERED: LIDOCAINE 5% TOPICAL PATCH ONE (04:12)
[2021-05-03] MEDS ORDERED: LIDOCAINE PATCH REMOVAL MC SCH (22:00)
== END 2021-05-03 04:54 | disposition home or self-care (01) ==
LOC: JER 01:35
DX: J06.9 Acute upper respiratory infection, unspecified (principal)
CPT/HCPCS: 36415; 80048; 81003; 84484; 85025; 87086; 87804; 93005; 93010; 99284-25; C9803; U0003; U0005

== ENCOUNTER 2023-09-16 20:49 | Emergency (ER) | payer OTHER ==
[2023-09-16 21:05] VITALS: BP 167/72; PULSE 59; RESP 17; TEMP 97.9; BMI 32.3
[2023-09-16] MEDS ORDERED: ACETAMINOPHEN 1000 MG/100 ML BAG IVPB ONE (22:23)
[2023-09-16] MEDS ORDERED: SODIUM CHLORIDE 0.9% 500 ML INFUS.BAG IV ONE (22:23)
[2023-09-16] MEDS ORDERED: ACETAMINOPHEN INJECTION 100 ML IVPB ONE (23:01)
[2023-09-16 23:49] LABS: BASO % 0.3 % (0-2.0); EOS % 1.5 % (0-4.5); HEMATOCRIT 41.9 % (35.4-49); HEMOGLOBIN 14.9 GM/dL (11.7-16.9); LYMPH % 23.3 % (8-40); MCH 30.4 pg (25.7-33.7); MCHC 35.6 g/dl (32.0-35.9); MEAN CELL VOLUME 85.4 fl (80-96); MEAN PLT VOLUME 7.7 fl (7.5-11.1); MONO % 9.6 % (3.8-10.2); NEUT % 65.3 % (42.8-82.8); PLATELET COUNT 181 10^3/uL (134-434); RBC 4.91 M/mm3 (4.00-5.60); RDW 13.5 % (11.9-15.9); WHITE BLOOD COUNT 6.3 K/mm3 (4.0-10.0)
[2023-09-17 01:03] LABS: POTASSIUM 4.1 mmol/L (3.5-5.1)
[2023-09-17 01:05] LABS: ALBUMIN 3.6 g/dl (3.4-5.0); BLOOD UREA NITROGEN 8.1 mg/dL (7-18); CALCIUM 9.2 mg/dL (8.5-10.1)
[2023-09-17 01:08] LABS: CREATININE 0.9 mg/dL (0.55-1.3)
[2023-09-17 01:10] LABS: BILIRUBIN,TOTAL 0.8 mg/dL (0.2-1); TOT PROT 7.2 g/dl (6.4-8.2)
== END 2023-09-17 02:52 | disposition home or self-care (01) ==
LOC: JER 20:49
PROC: 3E033NZ Introduction of Analgesics, Hypnotics, Sedatives into Peripheral Vein, Percutaneous Approach (ICD-10-PCS; principal; 2023-09-16)
DX: R42 Dizziness and giddiness (principal); R51.9 Headache, unspecified
CPT/HCPCS: 36415; 70450-TC; 71045-TC-FY; 80053; 84484; 85025; 93005; 93010; 99285-25

== ENCOUNTER 2023-12-19 09:37 | Inpatient (IN) | payer OTHER ==
[2023-12-19 10:20] LABS: VENOUS O2 SATURATION 94.6 % (70-80); VENOUS PH 7.485 (7.310-7.410)
[2023-12-19 10:44] LABS: ACTIVATED PTT 28.7 SECONDS (25.2-36.5); INR 1.11 (0.83-1.09); PROTHROMBIN TIME (PATIENT) 12.9 SEC (9.7-13.0)
[2023-12-19 10:48] LABS: BLOOD UREA NITROGEN 10.6 mg/dL (7-18); CALCIUM 8.9 mg/dL (8.5-10.1); MAGNESIUM 1.6 mg/dL (1.8-2.4)
[2023-12-19 10:49] LABS: ALBUMIN 2.8 g/dl (3.4-5.0)
[2023-12-19 10:52] LABS: CREATININE 0.7 mg/dL (0.55-1.3)
[2023-12-19 10:53] LABS: TOT PROT 6.5 g/dl (6.4-8.2)
[2023-12-19 11:07] LABS: PH,URINE 7.5 (5.0-8.0); URINE APPEARANCE CLEAR; URINE BILIRUBIN NEGATIVE (NEGATIVE); URINE COLOR YELLOW; URINE GLUCOSE (UA) TRACE (NEGATIVE); URINE KETONE NEGATIVE (NEGATIVE); URINE LEUK ESTERASE NEGATIVE (NEGATIVE); URINE NITRITE NEGATIVE (NEGATIVE); URINE PROTEIN NEGATIVE (NEGATIVE)
[2023-12-19 11:10] LABS: BASO % 0.3 % (0-2.0); EOS % 0.4 % (0-4.5); HEMATOCRIT 35.9 % (35.4-49); HEMOGLOBIN 12.7 GM/dL (11.7-16.9); LYMPH % 11.7 % (8-40); MCH 31.1 pg (25.7-33.7); MCHC 35.3 g/dl (32.0-35.9); MEAN CELL VOLUME 88.1 fl (80-96); MEAN PLT VOLUME 7.6 fl (7.5-11.1); MONO % 8.4 % (3.8-10.2); NEUT % 79.2 % (42.8-82.8); PLATELET COUNT 166 10^3/uL (134-434); RBC 4.08 M/mm3 (4.00-5.60); RDW 14.1 % (11.9-15.9); WHITE BLOOD COUNT 6.3 K/mm3 (4.0-10.0)
[2023-12-19] MEDS: SODIUM CHLORIDE 1,000 ML IV SCH (11:22)
[2023-12-19] MEDS ORDERED: ONDANSETRON 4 MG/2 ML VIAL ONE (12:54)
[2023-12-19] MEDS: ONDANSETRON 4 MG/2 ML VIAL IVPUSH ONE (12:54)
[2023-12-19] MEDS ORDERED: ATORVASTATIN CA 80 MG TABLET (FP) ONE ×2 (13:04→22:43)
[2023-12-19] MEDS ORDERED: CLOPIDOGREL BISULFATE 75 MG TABLET (FP) ONE (13:04)
[2023-12-19] MEDS ORDERED: ASPIRIN 81 MG CHEWABLE TABLETS ONE (13:04)
[2023-12-19] MEDS: ATORVASTATIN CA 80 MG TABLET (FP) PO ONE (13:09)
[2023-12-19] MEDS: CLOPIDOGREL BISULFATE 75 MG TABLET (FP) PO ONE (13:09)
[2023-12-19] MEDS: ASPIRIN 81 MG CHEWABLE TABLETS PO ONE (13:09)
[2023-12-19] MEDS ORDERED: MAGNESIUM OXIDE 400 MG TABLET (FP) ONE (16:42)
[2023-12-19] MEDS: MAGNESIUM OXIDE 400 MG TABLET (FP) PO ONE (16:49)
[2023-12-19] MEDS: INSULIN ASPART SLIDING SCALE (NOVOLOG) 1 VIAL SQ SCH (16:49)
[2023-12-19] MEDS ORDERED: METOPROLOL TARTRATE 50 MG TABLET (FP) ONE (22:43)
[2023-12-19] MEDS: METOPROLOL TARTRATE 50 MG TABLET (FP) PO SCH (22:57)
[2023-12-19] MEDS: ATORVASTATIN CA 80 MG TABLET (FP) PO SCH (22:57)
[2023-12-20 07:06] LABS: BASO % 0.2 % (0-2.0); EOS % 0.3 % (0-4.5); HEMATOCRIT 35.2 % (35.4-49); HEMOGLOBIN 12.3 GM/dL (11.7-16.9); MCH 30.7 pg (25.7-33.7); MCHC 35.1 g/dl (32.0-35.9); MEAN CELL VOLUME 87.5 fl (80-96); MEAN PLT VOLUME 7.3 fl (7.5-11.1); MONO % 7.8 % (3.8-10.2); NEUT % 79.7 % (42.8-82.8); PLATELET COUNT 199 10^3/uL (134-434); RBC 4.02 M/mm3 (4.00-5.60); RDW 14.2 % (11.9-15.9); WHITE BLOOD COUNT 6.2 K/mm3 (4.0-10.0)
[2023-12-20 07:22] LABS: POTASSIUM 3.9 mmol/L (3.5-5.1)
[2023-12-20 07:27] LABS: ALBUMIN 2.6 g/dl (3.4-5.0); BLOOD UREA NITROGEN 8.7 mg/dL (7-18); CALCIUM 9.2 mg/dL (8.5-10.1); MAGNESIUM 1.9 mg/dL (1.8-2.4)
[2023-12-20 07:30] LABS: CREATININE 0.6 mg/dL (0.55-1.3); PHOSPHOROUS 3.5 mg/dL (2.5-4.9)
[2023-12-20 07:32] LABS: BILIRUBIN,TOTAL 1.1 mg/dL (0.2-1); TOT PROT 6.1 g/dl (6.4-8.2)
[2023-12-20] MEDS: INSULIN (LEVEMIR) 100 UNITS/ML UNITS SQ SCH ×2 (09:18→21:28)
[2023-12-20] MEDS: ASPIRIN 81 MG CHEWABLE TABLETS PO SCH (09:19)
[2023-12-20] MEDS: CLOPIDOGREL BISULFATE 75 MG TABLET (FP) PO SCH (09:19)
[2023-12-20] MEDS: PANTOPRAZOLE 40 MG TABLET PO SCH (09:19)
[2023-12-20] MEDS: ENOXAPARIN NA (PORCINE) 40 MG/0.4 ML DISP.SYRIN SQ SCH (09:19)
[2023-12-20] MEDS ORDERED: ACETAMINOPHEN 1000 MG/100 ML BAG IVPB PRN (18:47)
[2023-12-20 21:16] VITALS: BMI 30.1
[2023-12-21] MEDS: INSULIN ASPART SLIDING SCALE (NOVOLOG) 1 VIAL SQ SCH (06:12)
[2023-12-21] MEDS: ACETAMINOPHEN 325 MG TABLET (FP) PO PRN (06:13)
[2023-12-21 07:44] LABS: BASO % 0.1 % (0-2.0); EOS % 0.5 % (0-4.5); HEMATOCRIT 35.3 % (35.4-49); HEMOGLOBIN 12.4 GM/dL (11.7-16.9); LYMPH % 12.1 % (8-40); MCH 30.8 pg (25.7-33.7); MCHC 35.1 g/dl (32.0-35.9); MEAN CELL VOLUME 87.7 fl (80-96); MEAN PLT VOLUME 7.2 fl (7.5-11.1); MONO % 8.5 % (3.8-10.2); NEUT % 78.8 % (42.8-82.8); PLATELET COUNT 215 10^3/uL (134-434); RBC 4.02 M/mm3 (4.00-5.60); RDW 14.2 % (11.9-15.9); WHITE BLOOD COUNT 6.1 K/mm3 (4.0-10.0)
[2023-12-21 07:57] LABS: POTASSIUM 3.9 mmol/L (3.5-5.1)
[2023-12-21 07:59] LABS: ALBUMIN 2.7 g/dl (3.4-5.0); CALCIUM 8.6 mg/dL (8.5-10.1)
[2023-12-21 08:00] LABS: MAGNESIUM 2.1 mg/dL (1.8-2.4)
[2023-12-21 08:02] LABS: CREATININE 0.7 mg/dL (0.55-1.3); PHOSPHOROUS 3.1 mg/dL (2.5-4.9)
[2023-12-21 08:04] LABS: TOT PROT 6.1 g/dl (6.4-8.2)
[2023-12-21] MEDS: INSULIN (LEVEMIR) 100 UNITS/ML UNITS SQ SCH (22:24)
[2023-12-22 08:30] LABS: BASO % 0.3 % (0-2.0); EOS % 0.5 % (0-4.5); HEMATOCRIT 34.9 % (35.4-49); HEMOGLOBIN 12.6 GM/dL (11.7-16.9); LYMPH % 15.8 % (8-40); MCH 31.7 pg (25.7-33.7); MCHC 36.1 g/dl (32.0-35.9); MEAN CELL VOLUME 87.8 fl (80-96); MONO % 7.9 % (3.8-10.2); NEUT % 75.5 % (42.8-82.8); PLATELET COUNT 248 10^3/uL (134-434); RBC 3.97 M/mm3 (4.00-5.60); RDW 14.5 % (11.9-15.9); WHITE BLOOD COUNT 6.2 K/mm3 (4.0-10.0)
[2023-12-22 08:37] LABS: POTASSIUM 3.7 mmol/L (3.5-5.1)
[2023-12-22 08:46] LABS: BLOOD UREA NITROGEN 9.6 mg/dL (7-18); CALCIUM 8.7 mg/dL (8.5-10.1); MAGNESIUM 2.2 mg/dL (1.8-2.4)
[2023-12-22 08:47] LABS: ALBUMIN 2.7 g/dl (3.4-5.0)
[2023-12-22 08:50] LABS: PHOSPHOROUS 3.1 mg/dL (2.5-4.9)
[2023-12-22 08:51] LABS: BILIRUBIN,TOTAL 1.1 mg/dL (0.2-1); CREATININE 0.6 mg/dL (0.55-1.3); TOT PROT 6.3 g/dl (6.4-8.2)
[2023-12-22 18:54] VITALS: RESP 18
[2023-12-23] MEDS: INSULIN (NOVOLOG) ASPART 100 UNITS/ML 10ML VIAL SQ SCH (06:48)
[2023-12-23 08:05] LABS: BASO % 0.2 % (0-2.0); EOS % 0.5 % (0-4.5); HEMATOCRIT 35.5 % (35.4-49); HEMOGLOBIN 12.7 GM/dL (11.7-16.9); LYMPH % 16.1 % (8-40); MCH 31.2 pg (25.7-33.7); MCHC 35.8 g/dl (32.0-35.9); MEAN CELL VOLUME 87.2 fl (80-96); MEAN PLT VOLUME 6.8 fl (7.5-11.1); MONO % 9.4 % (3.8-10.2); NEUT % 73.8 % (42.8-82.8); PLATELET COUNT 257 10^3/uL (134-434); RBC 4.08 M/mm3 (4.00-5.60); RDW 14.5 % (11.9-15.9); WHITE BLOOD COUNT 6.6 K/mm3 (4.0-10.0)
[2023-12-23 08:11] LABS: ALBUMIN 2.7 g/dl (3.4-5.0); BLOOD UREA NITROGEN 9.5 mg/dL (7-18); MAGNESIUM 1.8 mg/dL (1.8-2.4)
[2023-12-23 08:14] LABS: CREATININE 0.6 mg/dL (0.55-1.3)
[2023-12-23 08:15] LABS: BILIRUBIN,TOTAL 0.9 mg/dL (0.2-1); TOT PROT 6.6 g/dl (6.4-8.2)
[2023-12-23] MEDS ORDERED: LISINOPRIL 5 MG TABLET PO SCH (10:00)
[2023-12-23] MEDS: LISINOPRIL 5 MG TABLET PO SCH (10:18)
[2023-12-23] MEDS: METOPROLOL TARTRATE 50 MG TABLET (FP) PO SCH (10:37)
[2023-12-23 16:33] VITALS: BP 105/67; PULSE 78; TEMP 98.3
== END 2023-12-23 17:59 | DRG 65 ==
LOC: JER 09:37 → JERBED 11:51 → J4W 12-20 16:30
PROVIDERS: ADMIT Internal Medicine; ATTEND Internal Medicine
DX: I63.9 Cerebral infarction, unspecified (principal); G81.91 Hemiplegia, unspecified affecting right dominant side; R29.703 NIHSS score 3; I25.10 Atherosclerotic heart disease of native coronary artery without angina pectoris; E78.5 Hyperlipidemia, unspecified; I10 Essential (primary) hypertension; E11.65 Type 2 diabetes mellitus with hyperglycemia; R47.1 Dysarthria and anarthria; R47.81 Slurred speech; K21.9 Gastro-esophageal reflux disease without esophagitis; I69.392 Facial weakness following cerebral infarction; M21.371 Foot drop, right foot; R00.0 Tachycardia, unspecified; Z95.5 Presence of coronary angioplasty implant and graft
CPT/HCPCS: 0241U-QW; 36415; 70450-TC; 70496-TC; 70498-TC; 70551-TC; 71045-TC-FY; 74230-TC-FY; 80053; 80061; 81003; 82550; 82803; 82962; 83036; 83605; 83735; 84100; 84484; 85025; 85610; 85730; 86850; 86900; 86901; 92611-GN; 93005; 93010; 93306-TC; 93880-TC; 97163-GP; 99285-25

== ENCOUNTER 2024-03-15 13:30 | Emergency (ER) | payer OTHER ==
[2024-03-15 14:03] VITALS: BMI 27.4
[2024-03-15 15:45] LABS: BASO % 0.3 % (0-2.0); EOS % 1.2 % (0-4.5); HEMATOCRIT 37.7 % (35.4-49); HEMOGLOBIN 12.5 GM/dL (11.7-16.9); LYMPH % 21.6 % (8-40); MCH 29.4 pg (25.7-33.7); MCHC 33.2 g/dl (32.0-35.9); MEAN CELL VOLUME 88.5 fl (80-96); MEAN PLT VOLUME 6.4 fl (7.5-11.1); MONO % 9.3 % (3.8-10.2); NEUT % 67.6 % (42.8-82.8); PLATELET COUNT 255 10^3/uL (134-434); RBC 4.26 M/mm3 (4.00-5.60); RDW 14.2 % (11.9-15.9); WHITE BLOOD COUNT 8.1 K/mm3 (4.0-10.0)
[2024-03-15 15:53] LABS: INR 1.07 (0.83-1.09); PROTHROMBIN TIME (PATIENT) 12.1 SEC (9.7-13.0)
[2024-03-15 15:55] LABS: ACTIVATED PTT 29.2 SECONDS (25.2-36.5)
[2024-03-15 16:05] LABS: POTASSIUM 3.9 mmol/L (3.5-5.1)
[2024-03-15 16:07] LABS: ALBUMIN 2.8 g/dl (3.4-5.0); BLOOD UREA NITROGEN 10.2 mg/dL (7-18)
[2024-03-15 16:10] LABS: CREATININE 0.6 mg/dL (0.55-1.3)
[2024-03-15 16:12] LABS: BILIRUBIN,TOTAL 0.3 mg/dL (0.2-1); TOT PROT 6.1 g/dl (6.4-8.2)
[2024-03-15] MEDS ORDERED: ATORVASTATIN CA 80 MG TABLET (FP) PO SCH (22:00)
[2024-03-15] MEDS ORDERED: INSULIN ASPART SLIDING SCALE (NOVOLOG) 1 VIAL SQ SCH (22:00)
[2024-03-15] MEDS ORDERED: HEPARIN NA (PORCINE) 5,000 UNITS/ML 1ML VIAL SQ SCH (22:00)
[2024-03-15] MEDS ORDERED: GABAPENTIN 300 MG CAPSULE PO SCH (22:00)
[2024-03-15] MEDS ORDERED: INSULIN (LEVEMIR) 100 UNITS/ML UNITS SQ SCH (22:00)
[2024-03-15] MEDS ORDERED: METOPROLOL TARTRATE 50 MG TABLET (FP) PO SCH (22:00)
[2024-03-16 00:07] VITALS: RESP 18
[2024-03-16 06:01] VITALS: BP 105/54; PULSE 73; TEMP 98.2
[2024-03-16] MEDS ORDERED: PATIENT'S OWN MEDICATION (NON-FORMULARY) (Linaclotide 145 MCG Capsule) PO SCH (10:00)
[2024-03-16] MEDS ORDERED: PANTOPRAZOLE 40 MG TABLET PO SCH (10:00)
== END 2024-03-16 06:03 ==
LOC: JER 13:30 → UNDOADMIN 16:32 → JERBED 16:32 → JER 03-16 06:03
DX: M54.50 Low back pain, unspecified (principal); G89.29 Other chronic pain; I69.351 Hemiplegia and hemiparesis following cerebral infarction affecting right dominant side
CPT/HCPCS: 36415; 80053; 85025; 85610; 85730; 86850; 86900; 86901; 99284-25

== ENCOUNTER 2025-05-27 03:33 | Inpatient (IN) | payer OTHER ==
[2025-05-27] MEDS: SODIUM CHLORIDE 1,000 ML IV STA (04:12)
[2025-05-27] MEDS ORDERED: PROPOFOL 1,000,000 MCG/100 ML VIAL ONE (04:34)
[2025-05-27 04:37] LABS: BG HCT 28.0 % (35.4-49); VENOUS BASE EXCESS -0.8 mmol/L (-2-2); VENOUS O2 SATURATION 70.6 % (70-80); VENOUS PH 7.215 (7.310-7.410)
[2025-05-27 04:38] LABS: ABSOLUTE IMMATURE GRANULOCYTES 0.13 x10^3/uL (0.0-0.031); BASOPHILS # 0.03 x10^3/uL (0.01-0.08); EOSINOPHIL % 0.0 % (0.8-7.0); EOSINOPHILS # 0.00 x10^3/uL (0.04-0.54); MCHC 29.1 g/dl (32.3-36.5); MEAN CELL VOLUME 97.7 fl (79.0-92.2); MEAN PLT VOLUME 9.9 fl (9.4-12.4); MONOCYTE # 1.04 x10^3/uL (0.30-0.82); MONOCYTE % 6.8 % (5.3-12.2); RDW 13.7 % (12.2-16.6)
[2025-05-27 04:41] LABS: VENOUS PCO2 70.3 mmHg (38-52)
[2025-05-27] MEDS: NOREPINEPHRINE BITARTRATE/D5W 8 MG/250 ML BAG IVPB SCH (04:45)
[2025-05-27 05:03] LABS: INR 1.34 (0.83-1.09); PROTHROMBIN TIME (PATIENT) 14.7 SEC (9.7-13.0)
[2025-05-27] MEDS: PROPOFOL 1,000,000 MCG/100 ML VIAL IVPB SCH (05:04)
[2025-05-27] MEDS: FENTANYL IVPB 500 MCG/100 ML BAG IVPB SCH (05:04)
[2025-05-27] MEDS: PROPOFOL 200 MG/20 ML VIAL IVPUSH ONE (05:04)
[2025-05-27] MEDS: SODIUM CHLORIDE 0.9% 500 ML INFUS.BAG IV ONE (05:05)
[2025-05-27 05:06] LABS: ACTIVATED PTT 34.0 SECONDS (25.2-36.5)
[2025-05-27 05:07] LABS: ARTERIAL BLD GAS O2 SATURATION 97.5 % (95-98); ARTERIAL BLOOD GAS BASE EXCESS 4.8 mmol/L (-2-2); ARTERIAL BLOOD GAS PCO2 59.10 mmHg (35-45); ARTERIAL BLOOD GAS PO2 107.1 mmHg (80-100); BG HCT 34.0 % (35.4-49); O2 CONTENT 1.61 % vol
[2025-05-27] MEDS ORDERED: PIPERACILLIN/TAZOB 4.5 GM 4.5 GM/100 ML BAG IVPB ONE (05:08)
[2025-05-27 05:10] LABS: ALLENS TEST POSITIVE
[2025-05-27 05:11] LABS: VENT MODE V-AC; VENT RATE 12
[2025-05-27 05:12] LABS: CO2 42.0 mmol/L (21-32); GLUCOSE,RANDOM 229.0 mg/dL (74-106)
[2025-05-27 05:15] LABS: SGOT/AST 26.0 U/L (15-37); SGPT/ALT 22.0 U/L (13-61)
[2025-05-27 05:16] LABS: CREATININE 0.5 mg/dL (0.55-1.3)
[2025-05-27 05:17] LABS: TOT PROT 7.3 g/dl (6.4-8.2)
[2025-05-27 05:18] LABS: ALK PHOS 87.0 U/L (45-117)
[2025-05-27 05:20] LABS: N-TERMINAL BNP 1386.2 pg/ml (5-450)
[2025-05-27] MEDS: PIPERACILLIN/TAZOB 4.5 GM 4.5 GM in DEXTROSE 5%-WATER 100 ML IVPB ONE (05:29)
[2025-05-27] MEDS: MIDAZOLAM IN 0.9 % SOD.CHLORID 100 MG/100 ML PLAST..BAG IVPB SCH (05:36)
[2025-05-27 05:47] LABS: EPI CELLS 32 /uL (0-25.1); HYALINE CASTS 10 /uL (0-3.1); URINE APPEARANCE CLEAR; URINE BACTERIA 4994 /uL (0-1359); URINE BILIRUBIN NEGATIVE (NEGATIVE); URINE COLOR YELLOW; URINE GLUCOSE (UA) NEGATIVE (NEGATIVE); URINE KETONE NEGATIVE (NEGATIVE); URINE LEUK ESTERASE TRACE (NEGATIVE); URINE NITRITE NEGATIVE (NEGATIVE); URINE PROTEIN 1+ (NEGATIVE); URINE UROBILINOGEN 1.0 mg/dL (0.2-1.0); URINE WBC 65 /uL (0-25.8)
[2025-05-27] MEDS: EPINEPHrine 1:1,000 1,000 MCG in DEXTROSE 5%-WATER - 249 ML IVPB SCH (06:27)
[2025-05-27 07:25] LABS: URINE RBC 119.9 /uL (0-23.9)
[2025-05-27] MEDS: NOREPINEPHRINE 0.9 % NACL 8 MG/250 ML BAG IVPB SCH (10:27)
[2025-05-27] MEDS: VANCOMYCIN HCL IN 5 % DEXTROSE 1,500 MG/300 ML BAG IVPB ONE (10:27)
[2025-05-27 10:38] LABS: CO2 35 mmol/L (21-32)
[2025-05-27 10:41] LABS: SGPT/ALT 19 U/L (13-61)
[2025-05-27 10:42] LABS: CREATININE 0.7 mg/dL (0.55-1.3); SGOT/AST 19 U/L (15-37)
[2025-05-27 10:43] LABS: TOT PROT 5.8 g/dl (6.4-8.2)
[2025-05-27 10:44] LABS: ALK PHOS 71 U/L (45-117)
[2025-05-27 10:54] LABS: GLUCOSE,RANDOM 402 mg/dL (74-106)
[2025-05-27] MEDS: VANCOMYCIN HCL 1,500 MG in DEXTROSE 5%-WATER - 500 ML IVPB ONE (11:47)
[2025-05-27] MEDS: INSULIN ASPART SLIDING SCALE (NOVOLOG) 1 VIAL SQ SCH (11:54)
[2025-05-27] MEDS: ENOXAPARIN NA (PORCINE) 40 MG/0.4 ML DISP.SYRIN SQ SCH (14:43)
[2025-05-27] MEDS: PANTOPRAZOLE SODIUM 40 MG VIAL IVPUSH SCH (14:43)
[2025-05-27] MEDS: FENTANYL NS IVPB 500 MCG/100 ML BAG IVPB SCH (17:23)
[2025-05-27] MEDS ORDERED: VANCOMYCIN HCL 1,500 MG in DEXTROSE 5%-WATER - 250 ML IVPB SCH (18:15)
[2025-05-27] MEDS ORDERED: PIPERACILLIN/TAZOB 3.375 GM 3.375 GM in DEXTROSE 5%-WATER - 50 ML IVPB SCH (18:15)
[2025-05-27] MEDS: PIPERACILLIN/TAZOB 3.375 GM 3.375 GM in DEXTROSE 5%-WATER - 50 ML IVPB SCH (18:55)
[2025-05-27 20:58] LABS: ARTERIAL BLD GAS O2 SATURATION 99.5 % (95-98); ARTERIAL BLOOD GAS BASE EXCESS 9.2 mmol/L (-2-2); ARTERIAL BLOOD GAS PCO2 70.00 mmHg (35-45); ARTERIAL BLOOD GAS PO2 239.3 mmHg (80-100); BG HCT 45.0 % (35.4-49)
[2025-05-27 21:03] LABS: VENT MODE AC; VENT RATE 12
[2025-05-27] MEDS: VANCOMYCIN HCL IN 5 % DEXTROSE 1,500 MG/300 ML BAG IVPB SCH (22:13)
[2025-05-27 22:17] LABS: ALLENS TEST POSITIVE; ARTERIAL BLD GAS O2 SATURATION 96.8 % (95-98); ARTERIAL BLOOD GAS BASE EXCESS 11.5 mmol/L (-2-2); ARTERIAL BLOOD GAS PCO2 50.80 mmHg (35-45); ARTERIAL BLOOD GAS PO2 84.3 mmHg (80-100); BG HCT 33.0 % (35.4-49); O2 CONTENT 1.54 % vol
[2025-05-27 22:18] LABS: VENT MODE A/C; VENT RATE 18
[2025-05-27] MEDS: ACETYLCYSTEINE 20% 200MG/ML 4 ML VIAL *FOR ORAL / INH USE ONLY NEB SCH (22:44)
[2025-05-28 06:39] LABS: ARTERIAL BLD GAS O2 SATURATION 98.3 % (95-98); ARTERIAL BLOOD GAS BASE EXCESS 6.7 mmol/L (-2-2); ARTERIAL BLOOD GAS PCO2 46.60 mmHg (35-45); ARTERIAL BLOOD GAS PO2 113.5 mmHg (80-100); BG HCT 38.0 % (35.4-49)
[2025-05-28 06:50] LABS: VENT MODE A/C; VENT RATE 18
[2025-05-28 06:54] LABS: ABSOLUTE IMMATURE GRANULOCYTES 0.07 x10^3/uL (0.0-0.031); BASOPHILS # 0.01 x10^3/uL (0.01-0.08); EOSINOPHIL % 0.0 % (0.8-7.0); EOSINOPHILS # 0.00 x10^3/uL (0.04-0.54); MCHC 31.0 g/dl (32.3-36.5); MEAN CELL VOLUME 91.0 fl (79.0-92.2); MEAN PLT VOLUME 9.2 fl (9.4-12.4); MONOCYTE # 1.19 x10^3/uL (0.30-0.82); MONOCYTE % 8.0 % (5.3-12.2); RDW 13.2 % (12.2-16.6)
[2025-05-28 07:29] LABS: GLUCOSE,RANDOM 194.0 mg/dL (74-106)
[2025-05-28 07:31] LABS: CO2 35.0 mmol/L (21-32)
[2025-05-28 07:32] LABS: CREATININE 0.5 mg/dL (0.55-1.3); SGPT/ALT 17.0 U/L (13-61)
[2025-05-28 07:33] LABS: SGOT/AST 21.0 U/L (15-37)
[2025-05-28 07:34] LABS: TOT PROT 6.0 g/dl (6.4-8.2)
[2025-05-28 07:35] LABS: ALK PHOS 71.0 U/L (45-117)
[2025-05-28] MEDS: ALBUTEROL SO4 0.083% IH SOL 2.5 MG/3 ML VIAL.NEB. NEB SCH (08:15)
[2025-05-28] MEDS: MIDAZOLAM HCL 2 MG/2 ML SINGLE DOSE VIAL IVPUSH ONE (18:03)
[2025-05-28] MEDS: PIPERACILLIN/TAZOB 3.375 GM 3.375 GM in DEXTROSE 5%-WATER - 50 ML IVPB SCH (18:05)
[2025-05-28] MEDS: NAPH,MB-DB/K PH,MBDB POWDER PACKET NGT ONE (19:00)
[2025-05-29 07:39] LABS: ABSOLUTE IMMATURE GRANULOCYTES 0.06 x10^3/uL (0.0-0.031); BASOPHILS # 0.01 x10^3/uL (0.01-0.08); EOSINOPHIL % 0.1 % (0.8-7.0); EOSINOPHILS # 0.01 x10^3/uL (0.04-0.54); MCHC 31.6 g/dl (32.3-36.5); MEAN CELL VOLUME 89.3 fl (79.0-92.2); MEAN PLT VOLUME 9.3 fl (9.4-12.4); MONOCYTE # 0.89 x10^3/uL (0.30-0.82); MONOCYTE % 7.8 % (5.3-12.2); RDW 14.0 % (12.2-16.6)
[2025-05-29 07:47] LABS: CO2 37 mmol/L (21-32); GLUCOSE,RANDOM 158 mg/dL (74-106)
[2025-05-29 07:50] LABS: CREATININE 0.5 mg/dL (0.55-1.3); SGOT/AST 26 U/L (15-37); SGPT/ALT 16 U/L (13-61)
[2025-05-29 07:51] LABS: TOT PROT 5.4 g/dl (6.4-8.2)
[2025-05-29 07:52] LABS: ALK PHOS 64 U/L (45-117)
[2025-05-29] MEDS: NAPH,MB-DB/K PH,MBDB POWDER PACKET PO ONE (09:57)
[2025-05-29] MEDS: POTASSIUM PHOSPHATE 30 MM in SODIUM CHLORIDE 250 ML IVPB ONE (09:58)
[2025-05-29] MEDS: levETIRAcetam 500 MG/5 ML INJECTION VIAL IVPB SCH (10:57)
[2025-05-29] MEDS: VANCOMYCIN HCL IN 5 % DEXTROSE 1,500 MG/300 ML BAG IVPB SCH (22:09)
[2025-05-30 06:39] LABS: ABSOLUTE IMMATURE GRANULOCYTES 0.05 x10^3/uL (0.0-0.031); BASOPHILS # 0.01 x10^3/uL (0.01-0.08); EOSINOPHIL % 1.1 % (0.8-7.0); EOSINOPHILS # 0.10 x10^3/uL (0.04-0.54); MCHC 31.6 g/dl (32.3-36.5); MEAN CELL VOLUME 89.6 fl (79.0-92.2); MEAN PLT VOLUME 9.1 fl (9.4-12.4); MONOCYTE # 0.61 x10^3/uL (0.30-0.82); MONOCYTE % 6.4 % (5.3-12.2); RDW 14.8 % (12.2-16.6)
[2025-05-30 07:06] LABS: CO2 34.0 mmol/L (21-32); GLUCOSE,RANDOM 163.0 mg/dL (74-106)
[2025-05-30 07:09] LABS: SGPT/ALT 16.0 U/L (13-61)
[2025-05-30 07:10] LABS: CREATININE 0.5 mg/dL (0.55-1.3)
[2025-05-30 07:11] LABS: SGOT/AST 24.0 U/L (15-37); TOT PROT 5.1 g/dl (6.4-8.2)
[2025-05-30 07:12] LABS: ALK PHOS 59.0 U/L (45-117)
[2025-05-30] MEDS: POTASSIUM CHLORIDE ORAL LIQUID 20 MEQ/15 ML PO ONE (08:50)
[2025-05-30] MEDS: ASPIRIN 81 MG CHEWABLE TABLETS NGT SCH (15:56)
[2025-05-30] MEDS: CLOPIDOGREL BISULFATE 75 MG TABLET (FP) NGT SCH (15:56)
[2025-05-30] MEDS: MEROPENEM 1 GM in DEXTROSE 5%-WATER 100 ML IVPB SCH (20:39)
[2025-05-31 07:10] LABS: ABSOLUTE IMMATURE GRANULOCYTES 0.07 x10^3/uL (0.0-0.031); BASOPHILS # 0.02 x10^3/uL (0.01-0.08); EOSINOPHIL % 3.1 % (0.8-7.0); EOSINOPHILS # 0.31 x10^3/uL (0.04-0.54); MCHC 31.5 g/dl (32.3-36.5); MEAN CELL VOLUME 90.6 fl (79.0-92.2); MEAN PLT VOLUME 9.2 fl (9.4-12.4); MONOCYTE # 0.64 x10^3/uL (0.30-0.82); MONOCYTE % 6.3 % (5.3-12.2); RDW 15.1 % (12.2-16.6)
[2025-05-31 07:36] LABS: CO2 32.0 mmol/L (21-32)
[2025-05-31 07:37] LABS: GLUCOSE,RANDOM 117.0 mg/dL (74-106)
[2025-05-31 07:39] LABS: CREATININE 0.4 mg/dL (0.55-1.3)
[2025-05-31 07:40] LABS: SGOT/AST 27.0 U/L (15-37); SGPT/ALT 17.0 U/L (13-61)
[2025-05-31 07:41] LABS: TOT PROT 5.2 g/dl (6.4-8.2)
[2025-05-31 07:42] LABS: ALK PHOS 57.0 U/L (45-117)
[2025-05-31] MEDS: VANCOMYCIN HCL 1,500 MG in DEXTROSE 5%-WATER - 250 ML IVPB SCH (20:39)
[2025-05-31] MEDS: MEROPENEM 1 GM in DEXTROSE 5%-WATER 100 ML IVPB SCH (20:47)
[2025-05-31] MEDS: VANCOMYCIN/WATER FOR INJ (PEG) 1,000 MG/200 ML BAG IVPB SCH (21:50)
[2025-06-01] MEDS: MEROPENEM-0.9% SODIUM CHLORIDE 1 GM/50 ML BAG IVPB SCH (01:33)
[2025-06-01 06:37] LABS: ABSOLUTE IMMATURE GRANULOCYTES 0.13 x10^3/uL (0.0-0.031); BASOPHILS # 0.02 x10^3/uL (0.01-0.08); EOSINOPHIL % 4.4 % (0.8-7.0); EOSINOPHILS # 0.40 x10^3/uL (0.04-0.54); MCHC 31.4 g/dl (32.3-36.5); MEAN CELL VOLUME 90.1 fl (79.0-92.2); MEAN PLT VOLUME 8.8 fl (9.4-12.4); MONOCYTE # 0.82 x10^3/uL (0.30-0.82); MONOCYTE % 9.0 % (5.3-12.2); RDW 15.3 % (12.2-16.6)
[2025-06-01 06:56] LABS: CO2 32.0 mmol/L (21-32)
[2025-06-01 06:57] LABS: GLUCOSE,RANDOM 136.0 mg/dL (74-106)
[2025-06-01 06:59] LABS: CREATININE 0.4 mg/dL (0.55-1.3); SGPT/ALT 20.0 U/L (13-61)
[2025-06-01 07:00] LABS: SGOT/AST 29.0 U/L (15-37)
[2025-06-01 07:01] LABS: TOT PROT 5.0 g/dl (6.4-8.2)
[2025-06-01 07:02] LABS: ALK PHOS 58.0 U/L (45-117)
[2025-06-01 15:02] VITALS: BMI 22.6
[2025-06-01] MEDS ORDERED: METOCLOPRAMIDE HCL INJECTION 10 MG/2 ML VIAL IVPUSH PRN (17:13)
[2025-06-01] MEDS: POLYETHYLENE GLYCOL (HEALTHYLAX) 3350 17 GM PACKET NGT SCH (18:41)
[2025-06-02 06:55] LABS: ABSOLUTE IMMATURE GRANULOCYTES 0.15 x10^3/uL (0.0-0.031); BASOPHILS # 0.02 x10^3/uL (0.01-0.08); EOSINOPHIL % 4.5 % (0.8-7.0); EOSINOPHILS # 0.36 x10^3/uL (0.04-0.54); MCHC 31.4 g/dl (32.3-36.5); MEAN CELL VOLUME 89.3 fl (79.0-92.2); MEAN PLT VOLUME 9.1 fl (9.4-12.4); MONOCYTE # 1.04 x10^3/uL (0.30-0.82); MONOCYTE % 13.0 % (5.3-12.2); RDW 15.2 % (12.2-16.6)
[2025-06-02 07:09] LABS: INR 1.18 (0.83-1.09); PROTHROMBIN TIME (PATIENT) 13.0 SEC (9.7-13.0)
[2025-06-02 07:11] LABS: CO2 29.0 mmol/L (21-32); GLUCOSE,RANDOM 134.0 mg/dL (74-106)
[2025-06-02 07:14] LABS: CREATININE 0.3 mg/dL (0.55-1.3); SGOT/AST 32.0 U/L (15-37); SGPT/ALT 20.0 U/L (13-61)
[2025-06-02 07:15] LABS: TOT PROT 5.3 g/dl (6.4-8.2)
[2025-06-02 07:16] LABS: ALK PHOS 58.0 U/L (45-117)
[2025-06-02] MEDS: DEXMEDETOMIDINE PREMIX 400 MCG/100 ML BAG IVPB SCH (11:42)
[2025-06-02] MEDS: ACETAMINOPHEN 1000 MG/100 ML BAG IVPB PRN (11:42)
[2025-06-02] MEDS: NAPH,MB-DB/K PH,MBDB POWDER PACKET PO SCH (12:59)
[2025-06-03 06:56] LABS: ABSOLUTE IMMATURE GRANULOCYTES 0.08 x10^3/uL (0.0-0.031); BASOPHILS # 0.01 x10^3/uL (0.01-0.08); EOSINOPHIL % 5.2 % (0.8-7.0); EOSINOPHILS # 0.30 x10^3/uL (0.04-0.54); MCHC 31.2 g/dl (32.3-36.5); MEAN CELL VOLUME 89.9 fl (79.0-92.2); MEAN PLT VOLUME 8.9 fl (9.4-12.4); MONOCYTE # 0.84 x10^3/uL (0.30-0.82); MONOCYTE % 14.5 % (5.3-12.2); RDW 15.1 % (12.2-16.6)
[2025-06-03 07:21] LABS: CO2 31.0 mmol/L (21-32); GLUCOSE,RANDOM 142.0 mg/dL (74-106)
[2025-06-03 07:23] LABS: SGPT/ALT 24.0 U/L (13-61)
[2025-06-03 07:24] LABS: CREATININE 0.4 mg/dL (0.55-1.3); SGOT/AST 38.0 U/L (15-37)
[2025-06-03 07:25] LABS: TOT PROT 5.4 g/dl (6.4-8.2)
[2025-06-03 07:26] LABS: ALK PHOS 59.0 U/L (45-117)
[2025-06-03] MEDS: FUROSEMIDE 40 MG/4 ML INJECTABLE VIAL IVPUSH ONE (10:32)
[2025-06-04 06:56] LABS: ABSOLUTE IMMATURE GRANULOCYTES 0.12 x10^3/uL (0.0-0.031); BASOPHILS # 0.01 x10^3/uL (0.01-0.08); EOSINOPHIL % 4.9 % (0.8-7.0); EOSINOPHILS # 0.31 x10^3/uL (0.04-0.54); MCHC 31.5 g/dl (32.3-36.5); MEAN CELL VOLUME 87.7 fl (79.0-92.2); MEAN PLT VOLUME 9.0 fl (9.4-12.4); MONOCYTE # 0.86 x10^3/uL (0.30-0.82); MONOCYTE % 13.5 % (5.3-12.2); RDW 14.9 % (12.2-16.6)
[2025-06-04 07:20] LABS: CO2 28.0 mmol/L (21-32); GLUCOSE,RANDOM 136.0 mg/dL (74-106)
[2025-06-04 07:22] LABS: TOT PROT 5.2 g/dl (6.4-8.2)
[2025-06-04 07:23] LABS: CREATININE 0.3 mg/dL (0.55-1.3); SGOT/AST 38.0 U/L (15-37); SGPT/ALT 25.0 U/L (13-61)
[2025-06-04 07:25] LABS: ALK PHOS 60.0 U/L (45-117)
[2025-06-04] MEDS ORDERED: RAPID SEQUENCE INTUBATION KIT NR ONE (11:00)
[2025-06-04] MEDS: FUROSEMIDE 40 MG/4 ML INJECTABLE VIAL IVPUSH ONE (11:23)
[2025-06-04] MEDS: ACETYLCYSTEINE 20% 200MG/ML 4 ML VIAL *FOR ORAL / INH USE ONLY NEB SCH (12:06)
[2025-06-04] MEDS ORDERED: MIDAZOLAM HCL 5 MG/1 ML Single Dose Vial ONE (12:21)
[2025-06-04] MEDS: SUCCINYLCHOLINE CHLORIDE 200 MG/10 ML VIAL IVPUSH ONE (12:30)
[2025-06-04] MEDS: PROPOFOL 200 MG/20 ML VIAL IVPUSH ONE (12:30)
[2025-06-04] MEDS: MIDAZOLAM HCL 5 MG/1 ML Single Dose Vial IVPUSH ONE (12:30)
[2025-06-04] MEDS: EPINEPHrine 1:1000 P/F - 1 MG/ML AMP IV ONE (12:35)
[2025-06-04] MEDS: PROPOFOL 1,000,000 MCG/100 ML VIAL IVPB SCH (14:21)
[2025-06-05 06:52] LABS: ABSOLUTE IMMATURE GRANULOCYTES 0.10 x10^3/uL (0.0-0.031); BASOPHILS # 0.02 x10^3/uL (0.01-0.08); EOSINOPHIL % 1.8 % (0.8-7.0); EOSINOPHILS # 0.20 x10^3/uL (0.04-0.54); MCHC 31.0 g/dl (32.3-36.5); MEAN CELL VOLUME 90.0 fl (79.0-92.2); MEAN PLT VOLUME 8.7 fl (9.4-12.4); MONOCYTE # 1.05 x10^3/uL (0.30-0.82); MONOCYTE % 9.4 % (5.3-12.2); RDW 14.7 % (12.2-16.6)
[2025-06-05 07:15] LABS: CO2 31.0 mmol/L (21-32); GLUCOSE,RANDOM 146.0 mg/dL (74-106)
[2025-06-05 07:17] LABS: SGPT/ALT 27.0 U/L (13-61)
[2025-06-05 07:18] LABS: CREATININE 0.4 mg/dL (0.55-1.3); SGOT/AST 35.0 U/L (15-37)
[2025-06-05 07:19] LABS: TOT PROT 5.6 g/dl (6.4-8.2)
[2025-06-05 07:20] LABS: ALK PHOS 69.0 U/L (45-117)
[2025-06-05] MEDS: DEXAMETHASONE SOD PHOSPHATE 10 MG/1 ML VIAL IVPB SCH (10:45)
[2025-06-05] MEDS ORDERED: MIDAZOLAM HCL 2 MG/2 ML SINGLE DOSE VIAL ONE ×2 (11:20→19:28)
[2025-06-05] MEDS: FLUCONAZOLE 200 MG/NS 100 ML IVPB SCH (11:32)
[2025-06-05] MEDS: MIDAZOLAM HCL 2 MG/2 ML SINGLE DOSE VIAL IVPUSH ONE (14:27)
[2025-06-06 07:29] LABS: CO2 30.0 mmol/L (21-32); GLUCOSE,RANDOM 221.0 mg/dL (74-106)
[2025-06-06 07:32] LABS: CREATININE 0.3 mg/dL (0.55-1.3); SGOT/AST 27.0 U/L (15-37); SGPT/ALT 21.0 U/L (13-61)
[2025-06-06 07:34] LABS: TOT PROT 5.4 g/dl (6.4-8.2)
[2025-06-06 07:35] LABS: ALK PHOS 60.0 U/L (45-117)
[2025-06-06 07:42] LABS: ABSOLUTE IMMATURE GRANULOCYTES 0.05 x10^3/uL (0.0-0.031); BASOPHILS # 0.01 x10^3/uL (0.01-0.08); EOSINOPHIL % 0.0 % (0.8-7.0); EOSINOPHILS # 0.00 x10^3/uL (0.04-0.54); MCHC 32.1 g/dl (32.3-36.5); MEAN CELL VOLUME 88.6 fl (79.0-92.2); MEAN PLT VOLUME 9.0 fl (9.4-12.4); MONOCYTE # 0.23 x10^3/uL (0.30-0.82); MONOCYTE % 3.9 % (5.3-12.2); RDW 14.6 % (12.2-16.6)
[2025-06-06] MEDS ORDERED: MEROPENEM 1 GM in SODIUM CHLORIDE 50 ML IVPB SCH (10:00)
[2025-06-06] MEDS ORDERED: MEROPENEM 1 GM in SODIUM CHLORIDE 100 ML IVPB SCH (10:00)
[2025-06-06] MEDS: MEROPENEM 1 GM in SODIUM CHLORIDE 100 ML IVPB SCH (13:26)
[2025-06-06] MEDS: FUROSEMIDE 40 MG/4 ML INJECTABLE VIAL IVPUSH ONE (14:20)
[2025-06-07 05:50] LABS: ARTERIAL BLD GAS O2 SATURATION 98.1 % (95-98); ARTERIAL BLOOD GAS BASE EXCESS 6.0 mmol/L (-2-2); ARTERIAL BLOOD GAS PCO2 35.10 mmHg (35-45); ARTERIAL BLOOD GAS PO2 98.1 mmHg (80-100); BG HCT 31.0 % (35.4-49)
[2025-06-07 05:58] LABS: VENT MODE A/C; VENT RATE 18
[2025-06-07 07:42] LABS: CO2 31.0 mmol/L (21-32); GLUCOSE,RANDOM 277.0 mg/dL (74-106)
[2025-06-07 07:44] LABS: CREATININE 0.4 mg/dL (0.55-1.3)
[2025-06-07 08:15] LABS: ABSOLUTE IMMATURE GRANULOCYTES 0.06 x10^3/uL (0.0-0.031); BASOPHILS # 0.01 x10^3/uL (0.01-0.08); EOSINOPHIL % 0.0 % (0.8-7.0); EOSINOPHILS # 0.00 x10^3/uL (0.04-0.54); MCHC 31.6 g/dl (32.3-36.5); MEAN CELL VOLUME 88.5 fl (79.0-92.2); MEAN PLT VOLUME 9.6 fl (9.4-12.4); MONOCYTE # 0.19 x10^3/uL (0.30-0.82); MONOCYTE % 2.7 % (5.3-12.2); RDW 15.0 % (12.2-16.6)
[2025-06-07] MEDS: SODIUM PHOSPHATE - 15 MM in SODIUM CHLORIDE 250 ML IVPB ONE (11:21)
[2025-06-08 08:12] LABS: ABSOLUTE IMMATURE GRANULOCYTES 0.15 x10^3/uL (0.0-0.031); BASOPHILS # 0.01 x10^3/uL (0.01-0.08); EOSINOPHIL % 0.0 % (0.8-7.0); EOSINOPHILS # 0.00 x10^3/uL (0.04-0.54); MCHC 31.1 g/dl (32.3-36.5); MEAN CELL VOLUME 89.9 fl (79.0-92.2); MEAN PLT VOLUME 9.4 fl (9.4-12.4); MONOCYTE # 0.34 x10^3/uL (0.30-0.82); MONOCYTE % 4.0 % (5.3-12.2); RDW 15.1 % (12.2-16.6)
[2025-06-08 08:49] LABS: CO2 28 mmol/L (21-32); GLUCOSE,RANDOM 228 mg/dL (74-106)
[2025-06-08 08:52] LABS: CREATININE 0.3 mg/dL (0.55-1.3); SGOT/AST 37 U/L (15-37)
[2025-06-08 08:53] LABS: TOT PROT 4.4 g/dl (6.4-8.2)
[2025-06-08 08:54] LABS: ALK PHOS 50 U/L (45-117)
[2025-06-08 09:03] LABS: SGPT/ALT 43 U/L (13-61)
[2025-06-08] MEDS: CALCIUM GLUCONATE 10% - 1,000 MG/10 ML VIAL IVPUSH ONE (09:56)
[2025-06-08] MEDS: KCL 10 MEQ IVPB 10 MEQ/100 ML INFUS.BAG IVPB SCH (09:57)
[2025-06-09 07:29] LABS: MCHC 31.7 g/dl (32.3-36.5); MEAN CELL VOLUME 90.0 fl (79.0-92.2); MEAN PLT VOLUME 9.5 fl (9.4-12.4); RDW 14.8 % (12.2-16.6)
[2025-06-09 07:54] LABS: CO2 33.0 mmol/L (21-32); GLUCOSE,RANDOM 306.0 mg/dL (74-106)
[2025-06-09 07:55] LABS: SGOT/AST 38.0 U/L (15-37); SGPT/ALT 69.0 U/L (13-61)
[2025-06-09 07:56] LABS: CREATININE 0.4 mg/dL (0.55-1.3)
[2025-06-09 07:57] LABS: TOT PROT 5.4 g/dl (6.4-8.2)
[2025-06-09 07:58] LABS: ALK PHOS 69.0 U/L (45-117)
[2025-06-09] MEDS ORDERED: MIDAZOLAM HCL 2 MG/2 ML SINGLE DOSE VIAL ONE (10:11)
[2025-06-09] MEDS: MIDAZOLAM HCL 2 MG/2 ML SINGLE DOSE VIAL IVPUSH ONE (10:47)
[2025-06-10 06:48] LABS: MCHC 31.4 g/dl (32.3-36.5); MEAN CELL VOLUME 89.2 fl (79.0-92.2); MEAN PLT VOLUME 9.3 fl (9.4-12.4); RDW 15.0 % (12.2-16.6)
[2025-06-10 07:52] LABS: CO2 32.0 mmol/L (21-32); GLUCOSE,RANDOM 256.0 mg/dL (74-106)
[2025-06-10] MEDS ORDERED: BENZOIN/ALOE VERA/STORAX/TOLU 58 ML BOTTLE ONE (07:52)
[2025-06-10 07:55] LABS: CREATININE 0.4 mg/dL (0.55-1.3); SGOT/AST 56.0 U/L (15-37); SGPT/ALT 91.0 U/L (13-61)
[2025-06-10 07:57] LABS: TOT PROT 5.0 g/dl (6.4-8.2)
[2025-06-10 07:58] LABS: ALK PHOS 73.0 U/L (45-117)
[2025-06-10] MEDS: FUROSEMIDE 40 MG/4 ML INJECTABLE VIAL IVPUSH ONE (13:19)
[2025-06-10 14:13] LABS: INR 1.2 (0.83-1.09); PROTHROMBIN TIME (PATIENT) 13.1 SEC (9.7-13.0)
[2025-06-10] MEDS ORDERED: ALBUTEROL SO4 0.083% IH SOL 2.5 MG/3 ML VIAL.NEB. NEB ONE (20:00)
[2025-06-11 07:53] LABS: ABSOLUTE IMMATURE GRANULOCYTES 0.06 x10^3/uL (0.0-0.031); BASOPHILS # 0.01 x10^3/uL (0.01-0.08); EOSINOPHIL % 0.0 % (0.8-7.0); EOSINOPHILS # 0.00 x10^3/uL (0.04-0.54); MCHC 31.2 g/dl (32.3-36.5); MEAN CELL VOLUME 89.2 fl (79.0-92.2); MEAN PLT VOLUME 9.7 fl (9.4-12.4); MONOCYTE # 0.18 x10^3/uL (0.30-0.82); MONOCYTE % 1.9 % (5.3-12.2); RDW 15.6 % (12.2-16.6)
[2025-06-11] MEDS ORDERED: MIDAZOLAM HCL 5 MG/1 ML Single Dose Vial IVPUSH PRN (08:00)
[2025-06-11] MEDS ORDERED: ROCURONIUM BROMIDE 50 MG/5 ML VIAL IVPUSH PRN (08:00)
[2025-06-11 08:08] LABS: CO2 33.0 mmol/L (21-32); GLUCOSE,RANDOM 240.0 mg/dL (74-106)
[2025-06-11 08:11] LABS: CREATININE 0.4 mg/dL (0.55-1.3); SGOT/AST 24.0 U/L (15-37); SGPT/ALT 62.0 U/L (13-61)
[2025-06-11 08:13] LABS: TOT PROT 4.9 g/dl (6.4-8.2)
[2025-06-11 08:14] LABS: ALK PHOS 59.0 U/L (45-117)
[2025-06-12 07:24] LABS: ABSOLUTE IMMATURE GRANULOCYTES 0.07 x10^3/uL (0.0-0.031); BASOPHILS # 0.01 x10^3/uL (0.01-0.08); EOSINOPHIL % 0.0 % (0.8-7.0); EOSINOPHILS # 0.00 x10^3/uL (0.04-0.54); MCHC 31.3 g/dl (32.3-36.5); MEAN CELL VOLUME 89.9 fl (79.0-92.2); MEAN PLT VOLUME 9.9 fl (9.4-12.4); MONOCYTE # 0.28 x10^3/uL (0.30-0.82); MONOCYTE % 3.3 % (5.3-12.2); RDW 15.9 % (12.2-16.6)
[2025-06-12] MEDS ORDERED: MIDAZOLAM HCL 5 MG/1 ML Single Dose Vial IVPUSH PRN (08:00)
[2025-06-12] MEDS ORDERED: ROCURONIUM BROMIDE 50 MG/5 ML VIAL IVPUSH PRN (08:00)
[2025-06-12 08:12] LABS: CO2 31.0 mmol/L (21-32); GLUCOSE,RANDOM 210.0 mg/dL (74-106)
[2025-06-12 08:15] LABS: CREATININE 0.5 mg/dL (0.55-1.3); SGOT/AST 16.0 U/L (15-37); SGPT/ALT 43.0 U/L (13-61)
[2025-06-12 08:17] LABS: ALK PHOS 56.0 U/L (45-117); TOT PROT 4.9 g/dl (6.4-8.2)
[2025-06-12] MEDS ORDERED: ENOXAPARIN NA (PORCINE) 40 MG/0.4 ML DISP.SYRIN SQ ONE (13:37)
[2025-06-12] MEDS: ENOXAPARIN NA (PORCINE) 40 MG/0.4 ML DISP.SYRIN SQ SCH (17:01)
[2025-06-13 07:19] LABS: ABSOLUTE IMMATURE GRANULOCYTES 0.09 x10^3/uL (0.0-0.031); BASOPHILS # 0.01 x10^3/uL (0.01-0.08); EOSINOPHIL % 0.0 % (0.8-7.0); EOSINOPHILS # 0.00 x10^3/uL (0.04-0.54); MCHC 30.9 g/dl (32.3-36.5); MEAN CELL VOLUME 90.3 fl (79.0-92.2); MEAN PLT VOLUME 9.9 fl (9.4-12.4); MONOCYTE # 0.25 x10^3/uL (0.30-0.82); MONOCYTE % 3.5 % (5.3-12.2); RDW 15.9 % (12.2-16.6)
[2025-06-13 07:52] LABS: CO2 29.0 mmol/L (21-32); GLUCOSE,RANDOM 206.0 mg/dL (74-106)
[2025-06-13 07:55] LABS: CREATININE 0.4 mg/dL (0.55-1.3); SGOT/AST 19.0 U/L (15-37); SGPT/ALT 41.0 U/L (13-61)
[2025-06-13 07:56] LABS: TOT PROT 4.9 g/dl (6.4-8.2)
[2025-06-13 07:58] LABS: ALK PHOS 57.0 U/L (45-117)
[2025-06-13] MEDS: ENOXAPARIN NA (PORCINE) 40 MG/0.4 ML DISP.SYRIN SQ SCH (09:29)
[2025-06-13] MEDS: SIMETHICONE 40 MG/0.6 ML BOTTLE PO ONE (17:17)
[2025-06-13] MEDS: ACETAMINOPHEN 1000 MG/100 ML BAG IVPB ONE (17:43)
[2025-06-14] MEDS ORDERED: MIDAZOLAM HCL 5 MG/1 ML Single Dose Vial IVPUSH PRN (08:00)
[2025-06-14] MEDS ORDERED: ROCURONIUM BROMIDE 50 MG/5 ML VIAL IVPUSH PRN (08:00)
[2025-06-14 08:21] LABS: ABSOLUTE IMMATURE GRANULOCYTES 0.09 x10^3/uL (0.0-0.031); BASOPHILS # 0.00 x10^3/uL (0.01-0.08); EOSINOPHIL % 0.0 % (0.8-7.0); EOSINOPHILS # 0.00 x10^3/uL (0.04-0.54); MCHC 32.0 g/dl (32.3-36.5); MEAN CELL VOLUME 89.2 fl (79.0-92.2); MEAN PLT VOLUME 10.3 fl (9.4-12.4); MONOCYTE # 0.59 x10^3/uL (0.30-0.82); MONOCYTE % 7.8 % (5.3-12.2); RDW 16.1 % (12.2-16.6)
[2025-06-14 08:29] LABS: INR 1.32 (0.83-1.09); PROTHROMBIN TIME (PATIENT) 14.4 SEC (9.7-13.0)
[2025-06-14 08:48] LABS: CO2 28.0 mmol/L (21-32); GLUCOSE,RANDOM 247.0 mg/dL (74-106)
[2025-06-14 08:50] LABS: CREATININE 0.3 mg/dL (0.55-1.3)
[2025-06-14 08:51] LABS: SGOT/AST 42.0 U/L (15-37); SGPT/ALT 91.0 U/L (13-61)
[2025-06-14 08:52] LABS: TOT PROT 4.6 g/dl (6.4-8.2)
[2025-06-14 08:53] LABS: ALK PHOS 57.0 U/L (45-117)
[2025-06-14] MEDS ORDERED: ACETAMINOPHEN 1000 MG/100 ML BAG IVPB PRN (19:37)
[2025-06-15 07:16] LABS: INR 1.24 (0.83-1.09); PROTHROMBIN TIME (PATIENT) 13.5 SEC (9.7-13.0)
[2025-06-15 07:24] LABS: MCHC 30.9 g/dl (32.3-36.5); MEAN CELL VOLUME 90.3 fl (79.0-92.2); MEAN PLT VOLUME 9.9 fl (9.4-12.4); RDW 16.1 % (12.2-16.6)
[2025-06-15 08:00] LABS: CO2 32.0 mmol/L (21-32); GLUCOSE,RANDOM 130.0 mg/dL (74-106)
[2025-06-15 08:03] LABS: CREATININE 0.4 mg/dL (0.55-1.3); SGOT/AST 21.0 U/L (15-37); SGPT/ALT 66.0 U/L (13-61)
[2025-06-15 08:04] LABS: TOT PROT 5.0 g/dl (6.4-8.2)
[2025-06-15 08:06] LABS: ALK PHOS 61.0 U/L (45-117)
[2025-06-15] MEDS: KCL 10 MEQ IVPB 10 MEQ/100 ML INFUS.BAG IVPB SCH (09:25)
[2025-06-15] MEDS: VANCOMYCIN ORAL SOLUTION 125 MG/2.5 ML PO SCH (12:37)
[2025-06-15] MEDS: CIPROFLOXACIN 0.3% EYE DROPS 5 ML BOTTLE OS SCH (12:37)
[2025-06-15] MEDS ORDERED: RAPID SEQUENCE INTUBATION KIT NR ONE (13:05)
[2025-06-15] MEDS ORDERED: ALBUTEROL SO4 2.5/IPRATROPIUM 0.5 INH SOL 3 ML VIAL.NEB. NEB ONE (13:14)
[2025-06-15] MEDS ORDERED: VALPROATE SODIUM 500 MG/5 ML VIAL IVPB SCH (13:30)
[2025-06-15] MEDS ORDERED: ALBUTEROL SO4 2.5/IPRATROPIUM 0.5 INH SOL 3 ML VIAL.NEB. NEB PRN (13:59)
[2025-06-15] MEDS: ACETYLCYSTEINE 20% 200MG/ML 4 ML VIAL *FOR ORAL / INH USE ONLY NEB SCH (15:40)
[2025-06-15] MEDS: ALBUTEROL SO4 0.083% IH SOL 2.5 MG/3 ML VIAL.NEB. NEB SCH (15:40)
[2025-06-15] MEDS ORDERED: ALBUTEROL SO4 2.5/IPRATROPIUM 0.5 INH SOL 3 ML VIAL.NEB. NEB SCH (16:00)
[2025-06-16 07:24] LABS: ABSOLUTE IMMATURE GRANULOCYTES 0.11 x10^3/uL (0.0-0.031); BASOPHILS # 0.01 x10^3/uL (0.01-0.08); EOSINOPHIL % 0.1 % (0.8-7.0); EOSINOPHILS # 0.01 x10^3/uL (0.04-0.54); MCHC 30.8 g/dl (32.3-36.5); MEAN CELL VOLUME 91.2 fl (79.0-92.2); MEAN PLT VOLUME 9.6 fl (9.4-12.4); MONOCYTE # 1.16 x10^3/uL (0.30-0.82); MONOCYTE % 13.1 % (5.3-12.2); RDW 15.8 % (12.2-16.6)
[2025-06-16 08:27] LABS: CO2 34.0 mmol/L (21-32)
[2025-06-16 08:28] LABS: GLUCOSE,RANDOM 125.0 mg/dL (74-106)
[2025-06-16 08:30] LABS: SGOT/AST 15.0 U/L (15-37); SGPT/ALT 48.0 U/L (13-61)
[2025-06-16 08:31] LABS: CREATININE 0.3 mg/dL (0.55-1.3)
[2025-06-16 08:32] LABS: TOT PROT 5.2 g/dl (6.4-8.2)
[2025-06-16 08:33] LABS: ALK PHOS 63.0 U/L (45-117)
[2025-06-16] MEDS: DEXAMETHASONE SOD PHOSPHATE 10 MG/1 ML VIAL IVPB SCH (09:01)
[2025-06-16] MEDS: FUROSEMIDE 40 MG/4 ML INJECTABLE VIAL IVPUSH ONE ×2 (13:41→20:25)
[2025-06-16] MEDS: NAPH,MB-DB/K PH,MBDB POWDER PACKET PO SCH (16:10)
[2025-06-16] MEDS: POTASSIUM PHOSPHATE 30 MM in SODIUM CHLORIDE 500 ML IVPB ONE (18:05)
[2025-06-16 21:27] LABS: ARTERIAL BLD GAS O2 SATURATION 98.1 % (95-98); ARTERIAL BLOOD GAS BASE EXCESS 8.7 mmol/L (-2-2); ARTERIAL BLOOD GAS PCO2 42.20 mmHg (35-45); ARTERIAL BLOOD GAS PO2 102.0 mmHg (80-100); BG HCT 39.0 % (35.4-49); O2 CONTENT 1.82 % vol
[2025-06-16 21:31] LABS: ALLENS TEST POSITIVE
[2025-06-17 06:39] LABS: ABSOLUTE IMMATURE GRANULOCYTES 0.07 x10^3/uL (0.0-0.031); BASOPHILS # 0.01 x10^3/uL (0.01-0.08); EOSINOPHIL % 0.0 % (0.8-7.0); EOSINOPHILS # 0.00 x10^3/uL (0.04-0.54); MCHC 31.1 g/dl (32.3-36.5); MEAN CELL VOLUME 90.4 fl (79.0-92.2); MEAN PLT VOLUME 9.4 fl (9.4-12.4); MONOCYTE # 0.83 x10^3/uL (0.30-0.82); MONOCYTE % 10.2 % (5.3-12.2); RDW 15.4 % (12.2-16.6)
[2025-06-17 08:39] LABS: ALK PHOS 65.0 U/L (45-117); CO2 37.0 mmol/L (21-32); CREATININE 0.3 mg/dL (0.55-1.3); GLUCOSE,RANDOM 123.0 mg/dL (74-106); SGOT/AST 19.0 U/L (15-37); SGPT/ALT 39.0 U/L (13-61); TOT PROT 5.4 g/dl (6.4-8.2)
[2025-06-17] MEDS: DEXAMETHASONE SOD PHOSPHATE 10 MG/1 ML VIAL IVPB SCH (09:29)
[2025-06-17] MEDS: AMINO ACIDS/PROTEIN HYDROLYS 30 ML LIQUID.PKT PO SCH (17:39)
[2025-06-17] MEDS: morphine CARPU-JECT 2 MG/1 ML DISP.SYRIN IVPUSH PRN (20:49)
[2025-06-17] MEDS: PHENYLEPHRINE HCL/COCOA BUTTER 1 EACH SUPP.RECT RC SCH (21:19)
[2025-06-17] MEDS: HYDROCORTISONE 2.5% TOPICAL CREAM 30 GM TUBE RC SCH (23:20)
[2025-06-18] MEDS: morphine CARPU-JECT 2 MG/1 ML DISP.SYRIN IVPUSH ONE (06:45)
[2025-06-18 06:47] LABS: EOSINOPHIL % 0.7 % (0.8-7.0); MCHC 31.6 g/dl (32.3-36.5); MEAN CELL VOLUME 90.0 fl (79.0-92.2); MEAN PLT VOLUME 10.1 fl (9.4-12.4); MONOCYTE % 10.2 % (5.3-12.2); RDW 15.4 % (12.2-16.6)
[2025-06-18 06:48] LABS: ABSOLUTE IMMATURE GRANULOCYTES 0.08 x10^3/uL (0.0-0.031); BASOPHILS # 0.01 x10^3/uL (0.01-0.08); EOSINOPHILS # 0.06 x10^3/uL (0.04-0.54); MONOCYTE # 0.89 x10^3/uL (0.30-0.82)
[2025-06-18 07:20] LABS: CO2 39.0 mmol/L (21-32)
[2025-06-18 07:21] LABS: GLUCOSE,RANDOM 119.0 mg/dL (74-106)
[2025-06-18 07:23] LABS: SGOT/AST 20.0 U/L (15-37); SGPT/ALT 35.0 U/L (13-61)
[2025-06-18 07:24] LABS: CREATININE 0.3 mg/dL (0.55-1.3)
[2025-06-18 07:25] LABS: TOT PROT 6.1 g/dl (6.4-8.2)
[2025-06-18 07:26] LABS: ALK PHOS 73.0 U/L (45-117)
[2025-06-18] MEDS ORDERED: FUROSEMIDE 40 MG TABLET (FP) PO ONE (09:45)
[2025-06-18] MEDS: ZINC SULFATE 220 MG CAPSULE (FP) PO SCH (09:54)
[2025-06-18] MEDS: ASPIRIN COATED 81 MG TABLET.EC PO SCH (09:55)
[2025-06-18] MEDS ORDERED: COLLAGENASE CLOSTRIDIUM HIST. 30 GRAMS TUBE TP SCH (10:00)
[2025-06-18] MEDS: FUROSEMIDE 40 MG/4 ML INJECTABLE VIAL IVPUSH ONE (10:50)
[2025-06-18] MEDS: ASCORBIC ACID 500 MG TABLET (FP) PO SCH (10:53)
[2025-06-18] MEDS: DEXAMETHASONE SOD PHOSPHATE 10 MG/1 ML VIAL IVPB SCH (14:56)
[2025-06-18] MEDS: LEPTOSPERMUM HONEY (MEDIHONEY) TP SCH (14:58)
[2025-06-19] MEDS ORDERED: HYDROCORTISONE SOD SUCCINATE 100 MG/2 ML VIAL ONE (04:40)
[2025-06-19] MEDS ORDERED: NOREPINEPHRINE 0.9 % NACL 8 MG/250 ML BAG IVPB SCH (05:15)
[2025-06-19 06:56] LABS: ABSOLUTE IMMATURE GRANULOCYTES 0.08 x10^3/uL (0.0-0.031); BASOPHILS # 0.01 x10^3/uL (0.01-0.08); EOSINOPHIL % 0.0 % (0.8-7.0); EOSINOPHILS # 0.00 x10^3/uL (0.04-0.54); MCHC 30.9 g/dl (32.3-36.5); MEAN CELL VOLUME 90.8 fl (79.0-92.2); MEAN PLT VOLUME 10.3 fl (9.4-12.4); MONOCYTE # 0.69 x10^3/uL (0.30-0.82); MONOCYTE % 9.2 % (5.3-12.2); RDW 15.2 % (12.2-16.6)
[2025-06-19 07:31] LABS: CO2 39.0 mmol/L (21-32); GLUCOSE,RANDOM 150.0 mg/dL (74-106); SGOT/AST 21.0 U/L (15-37); SGPT/ALT 34.0 U/L (13-61)
[2025-06-19 07:33] LABS: ALK PHOS 78.0 U/L (45-117); CREATININE 0.5 mg/dL (0.55-1.3); TOT PROT 6.8 g/dl (6.4-8.2)
[2025-06-19] MEDS: FUROSEMIDE 40 MG/4 ML INJECTABLE VIAL IVPUSH ONE (12:00)
[2025-06-19] MEDS ORDERED: FUROSEMIDE 40 MG/4 ML INJECTABLE VIAL ONE (12:25)
[2025-06-19] MEDS: COLLAGENASE CLOSTRIDIUM HIST. 30 GRAMS TUBE TP SCH (12:28)
[2025-06-20] MEDS ORDERED: METOCLOPRAMIDE HCL INJECTION 10 MG/2 ML VIAL IVPUSH PRN (19:23)
[2025-06-20] MEDS ORDERED: ALBUTEROL SO4 2.5/IPRATROPIUM 0.5 INH SOL 3 ML VIAL.NEB. NEB PRN (19:23)
[2025-06-20] MEDS: ACETYLCYSTEINE 20% 200MG/ML 4 ML VIAL *FOR ORAL / INH USE ONLY NEB SCH (20:07)
[2025-06-20] MEDS: ALBUTEROL SO4 0.083% IH SOL 2.5 MG/3 ML VIAL.NEB. NEB SCH (20:07)
[2025-06-20] MEDS: levETIRAcetam 500 MG/5 ML INJECTION VIAL IVPB SCH (21:16)
[2025-06-20] MEDS: LEPTOSPERMUM HONEY (MEDIHONEY) TP SCH (21:24)
[2025-06-20] MEDS: HYDROCORTISONE 2.5% TOPICAL CREAM 30 GM TUBE RC SCH (21:24)
[2025-06-20] MEDS: PHENYLEPHRINE HCL/COCOA BUTTER 1 EACH SUPP.RECT RC SCH (22:56)
[2025-06-20] MEDS: VANCOMYCIN HCL 125 MG CAPSULE (RESTRICTED TO ID ONLY) PO SCH (23:34)
[2025-06-21] MEDS ORDERED: VANCOMYCIN ORAL SOLUTION 125 MG/2.5 ML PO SCH
[2025-06-21] MEDS: morphine CARPU-JECT 2 MG/1 ML DISP.SYRIN IVPUSH PRN (03:43)
[2025-06-21] MEDS: INSULIN ASPART SLIDING SCALE (NOVOLOG) 1 VIAL SQ SCH (06:02)
[2025-06-21 07:13] LABS: EOSINOPHIL % 0.8 % (0.8-7.0); EOSINOPHILS # 0.07 x10^3/uL (0.04-0.54); MEAN CELL VOLUME 92.6 fl (79.0-92.2)
[2025-06-21 07:15] LABS: ABSOLUTE IMMATURE GRANULOCYTES 0.06 x10^3/uL (0.0-0.031); BASOPHILS # 0.01 x10^3/uL (0.01-0.08); IMMATURE PLATELET FRACTION # 4.80 x10^3/uL; MCHC 30.9 g/dl (32.3-36.5); MEAN PLT VOLUME 10.2 fl (9.4-12.4); MONOCYTE # 0.81 x10^3/uL (0.30-0.82); MONOCYTE % 8.9 % (5.3-12.2); RDW 15.4 % (12.2-16.6)
[2025-06-21] MEDS: AMINO ACIDS/PROTEIN HYDROLYS 30 ML LIQUID.PKT PO SCH (08:02)
[2025-06-21 08:35] LABS: CO2 39.0 mmol/L (21-32)
[2025-06-21 08:36] LABS: GLUCOSE,RANDOM 108.0 mg/dL (74-106)
[2025-06-21 08:38] LABS: SGOT/AST 17.0 U/L (15-37); SGPT/ALT 24.0 U/L (13-61)
[2025-06-21 08:39] LABS: CREATININE 0.3 mg/dL (0.55-1.3)
[2025-06-21 08:40] LABS: TOT PROT 5.6 g/dl (6.4-8.2)
[2025-06-21 08:41] LABS: ALK PHOS 66.0 U/L (45-117)
[2025-06-21] MEDS: PANTOPRAZOLE SODIUM 40 MG VIAL IVPUSH SCH (09:14)
[2025-06-21] MEDS: ZINC SULFATE 220 MG CAPSULE (FP) PO SCH (09:14)
[2025-06-21] MEDS: ASPIRIN COATED 81 MG TABLET.EC PO SCH (09:15)
[2025-06-21] MEDS: COLLAGENASE CLOSTRIDIUM HIST. 30 GRAMS TUBE TP SCH (09:15)
[2025-06-21] MEDS: ASCORBIC ACID 500 MG TABLET (FP) PO SCH (09:15)
[2025-06-21] MEDS: ENOXAPARIN NA (PORCINE) 40 MG/0.4 ML DISP.SYRIN SQ SCH (09:16)
[2025-06-21] MEDS ORDERED: POLYETHYLENE GLYCOL (HEALTHYLAX) 3350 17 GM PACKET NGT SCH (10:00)
[2025-06-21] MEDS: LIDOCAINE 5% TOPICAL PATCH TP SCH (10:49)
[2025-06-21] MEDS: ACETAMINOPHEN 1000 MG/100 ML BAG IVPB PRN (10:50)
[2025-06-21] MEDS: LIDOCAINE PATCH REMOVAL MC SCH (21:36)
[2025-06-21] MEDS: IBUPROFEN 400 MG TABLET (FP) PO PRN (21:38)
[2025-06-22 06:37] VITALS: RESP 18
[2025-06-22 09:07] LABS: MCHC 30.4 g/dl (32.3-36.5); MEAN CELL VOLUME 94.3 fl (79.0-92.2); MEAN PLT VOLUME 11.9 fl (9.4-12.4); RDW 15.2 % (12.2-16.6)
[2025-06-22 09:10] LABS: CO2 32.0 mmol/L (21-32); CREATININE 0.4 mg/dL (0.55-1.3); GLUCOSE,RANDOM 119.0 mg/dL (74-106); SGOT/AST 21.0 U/L (15-37); SGPT/ALT 23.0 U/L (13-61); TOT PROT 5.6 g/dl (6.4-8.2)
[2025-06-22 09:18] LABS: ALK PHOS 64.0 U/L (45-117)
[2025-06-22] MEDS: ASPIRIN 81 MG CHEWABLE TABLETS NGT SCH (11:02)
[2025-06-22] MEDS: morphine CARPU-JECT 2 MG/1 ML DISP.SYRIN IVPUSH PRN (11:02)
[2025-06-22] MEDS: ACETAMINOPHEN 500 MG TABLET (FP) PO PRN (15:29)
[2025-06-22] MEDS: NAPH,MB-DB/K PH,MBDB POWDER PACKET PO ONE (16:28)
[2025-06-23 06:25] LABS: CO2 37.0 mmol/L (21-32)
[2025-06-23 06:26] LABS: GLUCOSE,RANDOM 124.0 mg/dL (74-106)
[2025-06-23 06:29] LABS: CREATININE 0.3 mg/dL (0.55-1.3)
[2025-06-23 07:01] LABS: IMMATURE PLATELET FRACTION # 2.70 x10^3/uL; MCHC 31.0 g/dl (32.3-36.5); MEAN CELL VOLUME 93.2 fl (79.0-92.2); MEAN PLT VOLUME 10.4 fl (9.4-12.4); RDW 15.6 % (12.2-16.6)
[2025-06-23] MEDS: MAGNESIUM SULFATE IN WATER 2 GM/50 ML IVPB IVPB ONE (09:28)
[2025-06-23] MEDS: NAPH,MB-DB/K PH,MBDB POWDER PACKET PO ONE (09:38)
[2025-06-24 06:36] LABS: CO2 35.0 mmol/L (21-32); GLUCOSE,RANDOM 135.0 mg/dL (74-106)
[2025-06-24 06:39] LABS: CREATININE 0.3 mg/dL (0.55-1.3); SGOT/AST 11.0 U/L (15-37); SGPT/ALT 19.0 U/L (13-61)
[2025-06-24 06:40] LABS: TOT PROT 5.4 g/dl (6.4-8.2)
[2025-06-24 06:42] LABS: ALK PHOS 65.0 U/L (45-117)
[2025-06-24 06:46] LABS: ABSOLUTE IMMATURE GRANULOCYTES 0.03 x10^3/uL (0.0-0.031); MEAN PLT VOLUME 10.5 fl (9.4-12.4); MONOCYTE % 10.4 % (5.3-12.2); RDW 15.6 % (12.2-16.6)
[2025-06-24 06:48] LABS: BASOPHILS # 0.00 x10^3/uL (0.01-0.08); EOSINOPHIL % 1.3 % (0.8-7.0); EOSINOPHILS # 0.08 x10^3/uL (0.04-0.54); IMMATURE PLATELET FRACTION # 2.70 x10^3/uL; MCHC 29.9 g/dl (32.3-36.5); MEAN CELL VOLUME 93.0 fl (79.0-92.2); MONOCYTE # 0.66 x10^3/uL (0.30-0.82)
[2025-06-24] MEDS: ACETAMINOPHEN 500 MG TABLET (FP) PO PRN (11:20)
[2025-06-24] MEDS: IBUPROFEN 400 MG TABLET (FP) PO PRN (17:19)
[2025-06-25 07:20] LABS: ABSOLUTE IMMATURE GRANULOCYTES 0.02 x10^3/uL (0.0-0.031); BASOPHILS # 0.01 x10^3/uL (0.01-0.08); EOSINOPHIL % 0.8 % (0.8-7.0); EOSINOPHILS # 0.04 x10^3/uL (0.04-0.54); IMMATURE PLATELET FRACTION # 1.70 x10^3/uL; MCHC 30.8 g/dl (32.3-36.5); MEAN CELL VOLUME 90.9 fl (79.0-92.2); MEAN PLT VOLUME 9.9 fl (9.4-12.4); MONOCYTE # 0.70 x10^3/uL (0.30-0.82); MONOCYTE % 13.9 % (5.3-12.2); RDW 15.4 % (12.2-16.6)
[2025-06-25 08:04] LABS: CO2 33.0 mmol/L (21-32); GLUCOSE,RANDOM 120.0 mg/dL (74-106)
[2025-06-25 08:06] LABS: SGPT/ALT 16.0 U/L (13-61)
[2025-06-25 08:07] LABS: CREATININE 0.3 mg/dL (0.55-1.3); SGOT/AST 9.0 U/L (15-37)
[2025-06-25 08:08] LABS: TOT PROT 5.6 g/dl (6.4-8.2)
[2025-06-25 08:09] LABS: ALK PHOS 65.0 U/L (45-117)
[2025-06-25] MEDS: PANTOPRAZOLE 40 MG TABLET PO SCH (09:55)
[2025-06-25] MEDS: SODIUM CHLORIDE 250 ML IV STA ×2 (12:12→13:57)
[2025-06-25] MEDS: METOPROLOL TARTRATE 50 MG TABLET (FP) PO ONE (13:36)
[2025-06-25 13:41] VITALS: TEMP 97.7
[2025-06-25] MEDS: BANATROL PLUS POWDER PACKET PO SCH (13:57)
[2025-06-25 16:58] VITALS: BP 110/56; PULSE 76
== END 2025-06-25 16:54 | DRG 870 ==
LOC: JER 03:33 → JERBED 06:12 → JICU 07:36 → J4W 06-20 14:45
PROVIDERS: ADMIT Internal Medicine Pulmonary Disease; ATTEND Internal Medicine
PROC: 5A1955Z Respiratory Ventilation, Greater than 96 Consecutive Hours (ICD-10-PCS; principal; 2025-05-27)
PROC: 0BH17EZ Insertion of Endotracheal Airway into Trachea, Via Natural or Artificial Opening (ICD-10-PCS; 2025-05-27)
PROC: 4A133B1 Monitoring of Arterial Pressure, Peripheral, Percutaneous Approach (ICD-10-PCS; 2025-05-27)
PROC: 4A133J1 Monitoring of Arterial Pulse, Peripheral, Percutaneous Approach (ICD-10-PCS; 2025-05-27)
PROC: 05HM33Z Insertion of Infusion Device into Right Internal Jugular Vein, Percutaneous Approach (ICD-10-PCS; 2025-05-27)
PROC: B543ZZA Ultrasonography of Right Jugular Veins, Guidance (ICD-10-PCS; 2025-05-27)
PROC: 0W9B30Z Drainage of Left Pleural Cavity with Drainage Device, Percutaneous Approach (ICD-10-PCS; 2025-05-27)
PROC: 0BJ08ZZ Inspection of Tracheobronchial Tree, Via Natural or Artificial Opening Endoscopic (ICD-10-PCS; 2025-05-29)
PROC: 05HN33Z Insertion of Infusion Device into Left Internal Jugular Vein, Percutaneous Approach (ICD-10-PCS; 2025-06-05)
PROC: B544ZZA Ultrasonography of Left Jugular Veins, Guidance (ICD-10-PCS; 2025-06-05)
DX: A41.9 Sepsis, unspecified organism (principal); L89.153 Pressure ulcer of sacral region, stage 3; I46.9 Cardiac arrest, cause unspecified; J96.01 Acute respiratory failure with hypoxia; J18.9 Pneumonia, unspecified organism; R65.21 Severe sepsis with septic shock; J93.9 Pneumothorax, unspecified; I69.351 Hemiplegia and hemiparesis following cerebral infarction affecting right dominant side; N39.0 Urinary tract infection, site not specified; J98.11 Atelectasis; I25.10 Atherosclerotic heart disease of native coronary artery without angina pectoris; E78.5 Hyperlipidemia, unspecified; I95.9 Hypotension, unspecified; L89.152 Pressure ulcer of sacral region, stage 2; E11.9 Type 2 diabetes mellitus without complications; I10 Essential (primary) hypertension; B96.20 Unspecified Escherichia coli [E. coli] as the cause of diseases classified elsewhere; B96.1 Klebsiella pneumoniae [K. pneumoniae] as the cause of diseases classified elsewhere; R19.7 Diarrhea, unspecified; D69.6 Thrombocytopenia, unspecified; N40.0 Benign prostatic hyperplasia without lower urinary tract symptoms; K21.9 Gastro-esophageal reflux disease without esophagitis; I69.391 Dysphagia following cerebral infarction
CPT/HCPCS: 31500; 36415; 36600; 70450-TC; 70490-TC; 71045-TC-FY; 71250-TC; 80048; 80053; 81003; 82550; 82803; 82962; 83036; 83605; 83735; 83880; 84100; 84146; 84484; 85025; 85027; 85610; 85730; 86850; 86900; 86901; 87040; 87070; 87086; 87205; 87481; 87637-QW; 93005; 93010; 94002; 94640; 94660; 95816; 97162-GP; 99291; J1100